=== PATIENT | male | born 1935 | race Caucasian/White ===

== ENCOUNTER 2017-09-30 03:59 | Emergency (ER) | payer MEDICARE ==
[~2017-09-30] VITALS: Ht 177.8 cm; Wt 95.2 kg
[~2017-09-30 03:59] MED LIST: ALFU10; ALLO100 PO; ASPI81CH PO; ASPI81EC PO; ATEN100 PO; AZELASTINE205.5 MCG/ NS; AZIT250 PO; Amitiza8 MCG PO; Aspir 8181 MG PO; B-121000 MC2 PO; CENTRUM COMPLE1 EACH PO; CODLIVC PO; DILT60ER PO; DIPH50 PO; DOCU100; DOCU100 PO; ESCI10; ESCI10 PO; FEXPSEER PO; FINA5 PO; Keflex500 MG PO; LATA.005SO BOTHEYES; LATA.005SO OD; LAVAP17G PO; LEVOCETIRIZINE D5 MG PO; LEVSOD100 PO; LINZESS145 MCG PO; LIRA0.6P; LISI20 PO; Lactulose10 GM/151 PO; METCAR750; METF500 PO; METF500C PO; METO50 PO; NEBI10 PO; Neurontin 300300 MG PO; OLME20 PO; OXYACE5T PO; OXYC5; PARO20 PO; POLY17UD PO; PRAV20 PO; Pravastatin Sod40 MG PO; Protonix40 MG PO; Razadyne8 MG PO; SIMBRINZA 1%-0.28 ML OP; SIMV20 PO; Senna-Extra17.2 MG; Senna-Extra17.2 MG PO; TAMS.4ER PO; TRAZ100 PO; VENL75ER PO
[2017-09-30] MEDS ORDERED: Tegretol200 MG PO (06:07)
== END 2017-09-30 06:27 | disposition home or self-care (01) ==
LOC: ER 03:59
DX: R51 Headache (principal); I10 Essential (primary) hypertension; E03.9 Hypothyroidism, unspecified; F32.9 Major depressive disorder, single episode, unspecified; E11.39 Type 2 diabetes mellitus with other diabetic ophthalmic complication; H40.9 Unspecified glaucoma; Z79.899 Other long term (current) drug therapy; Z79.82 Long term (current) use of aspirin; Z79.2 Long term (current) use of antibiotics; Z85.46 Personal history of malignant neoplasm of prostate
CPT/HCPCS: 70450; 99284

== ENCOUNTER 2017-10-04 11:26 | Emergency (ER) | payer MEDICARE ==
[~2017-10-04] VITALS: Ht 175.3 cm; Wt 99.8 kg
[~2017-10-04 11:26] MED LIST changes: +Tegretol200 MG PO
[2017-10-04 12:21] LABS: BASOPHILS ABSOLUTE AUTO 0.03 K/mm3 (0.00-0.23); BASOPHILS PERCENT AUTO 0 % (0-2); EOSINOPHILS ABSOLUTE AUTO 0.05 K/mm3 (0.00-0.68); EOSINOPHILS PERCENT AUTO 0 % (0-6); Hematocrit 40.2 % (37.0-53.0); Hemoglobin 13.6 g/dL (13.5-17.5); IMMATURE GRAN ABSOLUTE AUTO 0.06 K/mm3 (0.00-0.10); IMMATURE GRAN PERCENT AUTO 0 % (0-1); LYMPHOCYTES ABSOLUTE AUTO 15.48 K/mm3 (0.84-5.20); LYMPHOCYTES PERCENT AUTO 71 % (21-46); MONOCYTES ABSOLUTE AUTO 1.46 K/mm3 (0.16-1.47); MONOCYTES PERCENT AUTO 7 % (4-13); Mean Corpuscular HGB 31.6 pg (26.0-34.0); Mean Corpuscular HGB Conc 33.8 g/dL (31.5-36.5); Mean Corpuscular Volume 94 fL (80-100); Mean Platelet Volume 9.8 fL (9.1-12.4); NEUTROPHILS ABSOLUTE AUTO 4.86 K/mm3 (1.96-9.15); NEUTROPHILS PERCENT AUTO 22 % (41-73); Platelet Count 201 K/mm3 (150-400); RDW Coefficient Variation 13.1 % (11.7-14.2); RDW Standard Deviation 44.6 fL (35.1-46.3); White Blood Cell Count 21.94 K/mm3 (4.00-11.30)
[2017-10-04 12:37] LABS: Alanine Aminotransfer (ALT/SGP 27 U/L (12-78); Albumin, Blood 3.7 g/dL (3.4-5.0); Alk Phos 62 U/L (50-136); Anion Gap 8 mmol/L (6-16); Aspartate Aminotrans (AST/SGOT 21 U/L (12-37); Bilirubin, Total 0.3 mg/dL (0.1-1.0); Blood Urea Nitrogen 16 mg/dL (8-24); Bun/Creatinine Ratio 20.1 (12.0-20.0); CO2, Blood 23 mmol/L (21-32); Calcium, Blood 8.7 mg/dL (8.5-10.1); Chloride, Blood 96 mmol/L (98-108); Globulin, Blood 3.7 g/dL (2.2-4.0); Glomerular Filtration Rate >60 (60-); Glucose, Blood 120 mg/dL (70-99); Potassium, Blood 4.2 mmol/L (3.5-5.5); Sodium, Blood 127 mmol/L (136-145); Total Protein, Blood 7.4 g/dL (6.4-8.2)
[2017-10-04] MEDS ORDERED: TAMS.4ER PO (14:37)
== END 2017-10-04 17:20 | disposition home or self-care (01) ==
LOC: ER 11:26
PROVIDERS: Physician Assistant
DX: E87.1 Hypo-osmolality and hyponatremia (principal); I10 Essential (primary) hypertension; E03.9 Hypothyroidism, unspecified; F32.9 Major depressive disorder, single episode, unspecified; E11.9 Type 2 diabetes mellitus without complications; Z79.899 Other long term (current) drug therapy; Z79.82 Long term (current) use of aspirin
CPT/HCPCS: 36415; 71046; 80053; 81000; 84484; 85025; 93005; 93010; 99283

== ENCOUNTER → 2017-10-06 | Outpatient (CLI) | payer MEDICARE ==
[2017-10-06 10:47] LABS: Hematocrit 40.9 % (37.0-53.0); Hemoglobin 14.1 g/dL (13.5-17.5); Mean Corpuscular HGB 31.9 pg (26.0-34.0); Mean Corpuscular HGB Conc 34.5 g/dL (31.5-36.5); Mean Corpuscular Volume 93 fL (80-100); Mean Platelet Volume 9.8 fL (9.1-12.4); Platelet Count 219 K/mm3 (150-400); RDW Coefficient Variation 12.8 % (11.7-14.2); RDW Standard Deviation 43.4 fL (35.1-46.3); Red Blood Cell Count 4.42 M/mm3 (4.30-5.90)
[2017-10-06 11:04] LABS: Anion Gap 10 mmol/L (6-16); Blood Urea Nitrogen 16 mg/dL (8-24); Bun/Creatinine Ratio 15.7 (12.0-20.0); CO2, Blood 26 mmol/L (21-32); Calcium, Blood 8.9 mg/dL (8.5-10.1); Chloride, Blood 94 mmol/L (98-108); Creatinine, Blood 1.02 mg/dL (0.60-1.20); Glomerular Filtration Rate >60 (60-); Glucose, Blood 120 mg/dL (70-99); Potassium, Blood 4.3 mmol/L (3.5-5.5); Sodium, Blood 130 mmol/L (136-145); Thyroid Stimulating Hormone 2.413 uIU/mL (0.360-4.800)
[2017-10-06 13:27] LABS: BASOPHILS PERCENT MAN 0 % (0-2); EOSINOPHILS PERCENT MAN 0 % (0-6); LYMPHOCYTES ABSOLUTE MAN 19.48 K/mm3 (0.84-5.20); LYMPHOCYTES PERCENT MAN 87 % (21-46); MONOCYTES ABSOLUTE MAN 0.22 K/mm3 (0.16-1.47); MONOCYTES PERCENT MAN 1 % (4-13); NEUTROPHILS ABSOLUTE MAN 2.68 K/mm3 (1.96-9.15); SEG NEUTROPHILS PERCENT MAN 12 % (41-73); TOTAL CELLS COUNTED 100
== END ==
LOC: LAB SHORT 10:38
PROVIDERS: Family Medicine
DX: E87.1 Hypo-osmolality and hyponatremia (principal); R53.83 Other fatigue
CPT/HCPCS: 80048; 84443; 85025

== ENCOUNTER → 2017-11-06 | Outpatient (CLI) | payer MEDICARE ==
[2017-11-06 11:15] LABS: Hematocrit 40.9 % (37.0-53.0); Hemoglobin 13.8 g/dL (13.5-17.5); Mean Corpuscular HGB Conc 33.7 g/dL (31.5-36.5); Mean Corpuscular Volume 95 fL (80-100); Mean Platelet Volume 9.6 fL (9.1-12.4); Platelet Count 229 K/mm3 (150-400); RDW Coefficient Variation 13.2 % (11.7-14.2); RDW Standard Deviation 46.4 fL (35.1-46.3); Red Blood Cell Count 4.31 M/mm3 (4.30-5.90); White Blood Cell Count 19.61 K/mm3 (4.00-11.30)
[2017-11-06 11:38] LABS: BASOPHILS PERCENT MAN 0 % (0-2); EOSINOPHILS ABSOLUTE MAN 0.19 K/mm3 (0.00-0.68); EOSINOPHILS PERCENT MAN 1 % (0-6); LYMPHOCYTES % ATYPICAL MANUAL 18 % (0-0); LYMPHOCYTES ABSOLUTE MAN 13.72 K/mm3 (0.84-5.20); LYMPHOCYTES PERCENT MAN 52 % (21-46); MONOCYTES ABSOLUTE MAN 1.17 K/mm3 (0.16-1.47); MONOCYTES PERCENT MAN 6 % (4-13); NEUTROPHILS ABSOLUTE MAN 4.31 K/mm3 (1.96-9.15); PLASMA CELL ABSOLUTE MAN 0.19 K/mm3 (0.00-0.00); PLASMA CELLS PERCENT MAN 1 % (0-0); SEG NEUTROPHILS PERCENT MAN 22 % (41-73); TOTAL CELLS COUNTED 100
== END ==
LOC: LAB EV 11:12
PROVIDERS: Family Medicine
DX: K62.5 Hemorrhage of anus and rectum (principal)
CPT/HCPCS: 85025

== ENCOUNTER 2019-06-17 17:05 | Emergency (ER) | payer MEDICARE ==
[~2019-06-17] VITALS: Ht 177.8 cm; Wt 102.1 kg
== END 2019-06-17 18:40 | disposition home or self-care (01) ==
LOC: ER 17:05
DX: R04.0 Epistaxis (principal); I10 Essential (primary) hypertension; E11.9 Type 2 diabetes mellitus without complications; E03.9 Hypothyroidism, unspecified; H40.9 Unspecified glaucoma; Z85.6 Personal history of leukemia; Z79.899 Other long term (current) drug therapy; Z79.82 Long term (current) use of aspirin
CPT/HCPCS: 99283

== ENCOUNTER 2019-09-26 10:48 | Day surgery (SDC) | payer MEDICARE ==
[~2019-09-26] VITALS: Ht 172.7 cm; Wt 104.5 kg
[~2019-09-26 10:48] MED LIST changes: +ARIP10 PO; +B-12500 MCG PO; +Cyproheptadine H4 MG PO; +ELIQUIS5 MG PO; +LACT10SY PO; +MEMA10 PO; +METOPROLOL SUCC25 MG PO; -Pravastatin Sod40 MG PO; +Pravastatin Sod80 MG PO
--- NOTE | 2019-09-26 17:30 | NUR ---
PT BROUGHT TO PCU 5 VIA BED FROM [facility] POST PACER, HE IS A/OX3, AWAKE, PLEASANT AND COOPERATIVE WITH CARE, FOLLOWS COMMANDS WELL, STATES HIS LEFT SHOULDER HAS SOME DISCOMFORT, PLACED HIS ARM IN A SLING AND ICE PACK ON INCISION SITE FOR COMFORT, SITE HAS DRESSING IN PLACE IS C/D/I, NO BRUISING NOTED, IV SITE TO LFA, SITE IS CLEAR AND PATENT, BTX4, ABD FLAT SOFT NONTENDER, VOIDS WITHOUT DIFF, SKIN C/W/D EXCEPT NOTED ABOVE, ARAVIND, AMBULATED TO THE BR. ENMA, CALL LIGHT IN REACH.
--- NOTE | 2019-09-26 19:12 | NUR ---
PT HAVING SOME PAIN AT THE PACER SITE, RATES AT 5/10 GAVE A BRADCO. CALL LIGHT IN REACH, IN ROOM.
--- NOTE | 2019-09-26 19:59 | NUR ---
RECEIVED REPORT FROM DAY SHIFT, A+O, IN ROOM, NO S/SX OF INFECTION AT WOUND, WEARING BRACE AND ICE PACK ON SHOULDER, USING URINAL, LS GOOD, HR CONSISTANT, VSS, FEET COLD BUT PROFUSING WELL, PULSE STRONG IN ALL LIMBS, BM TODAY, BT+4, SOFT NONTENDER, WILL CONTINUE TO MONITOR AND TREAT, PAIN AROUND 3, COUNCELED R/PROCEDURE AND RECOVERY
--- NOTE | 2019-09-27 06:38 | NUR ---
a+o, declined medication for shoulder pain, did accept an ice bag, no difficulties noted with heart pacer, bp remained below 160 post one time dose of heart med, will continue to monitor and treat until share bsr with day shift and pt, bed in low position.
--- NOTE | 2019-09-27 09:00 | NUR ---
DISCHARGE INSTRUCTIONS GONE OVER WITH PT AND PT'S . ALL QUESTIONS ANSWERED. MEDICATIONS GONE OVER IN DETAIL, NO QUESTIONS FROM PT OR FAMILY. BELONGINGS GATHERED AND GIVEN TO PT'S . PT PROVIDED DETAILED INSTRUCTIONS FOR POST PACER CARE AND FOLLOW UP. PT STATED UNDERSTANDING OF INSTRUCTIONS. PT LEFT PCU VIA W/C ESCORTED BY OUTBOARD MOTOR INSPECTOR.
== END 2019-09-27 08:53 | disposition home or self-care (01) ==
LOC: MHTC 10:48 → PCU 16:59 → MHTC 23:19 → PCU 23:19 → MHTC 09-27 08:53
DX: I49.5 Sick sinus syndrome (principal); I48.0 Paroxysmal atrial fibrillation; I10 Essential (primary) hypertension; E11.9 Type 2 diabetes mellitus without complications; E03.9 Hypothyroidism, unspecified; E66.9 Obesity, unspecified; Z79.01 Long term (current) use of anticoagulants; Z79.899 Other long term (current) drug therapy; Z68.35 Body mass index [BMI] 35.0-35.9, adult
CPT/HCPCS: 33208; 71045; 99152; 99153; A9270-GY; C1785; C1898; J0690; J1644; J2250; J3010; J7030; J7040

== ENCOUNTER 2019-09-29 04:09 | Emergency (ER) | payer MEDICARE ==
[~2019-09-29] VITALS: Ht 175.3 cm; Wt 104.3 kg
== END 2019-09-29 06:35 | disposition home or self-care (01) ==
LOC: ER 04:09
DX: S01.112A Laceration without foreign body of left eyelid and periocular area, initial encounter (principal); I10 Essential (primary) hypertension; E11.9 Type 2 diabetes mellitus without complications; F32.9 Major depressive disorder, single episode, unspecified; E03.9 Hypothyroidism, unspecified; I47.1 Supraventricular tachycardia; Z79.899 Other long term (current) drug therapy; W18.30XA Fall on same level, unspecified, initial encounter
CPT/HCPCS: 12011; 70450; 99284-25

== ENCOUNTER → 2019-11-15 11:15 | Emergency (ER) | payer MEDICARE ==
[~2019-11-15] VITALS: Ht 175.3 cm; Wt 101.2 kg
[~2019-11-15 11:15] MED LIST changes: +ABILIFY MYCITE2 MG PO
[2019-11-15 12:18] LABS: Source, Urine Clean Catch
[2019-11-15 12:20] LABS: Hematocrit 43.8 % (37.0-53.0); Mean Corpuscular HGB 30.6 pg (26.0-34.0); Mean Corpuscular Volume 96 fL (80-100); Mean Platelet Volume 10.4 fL (9.1-12.4); NRBC ABSOLUTE 0.02 K/mm3 (0.00-0.02); NRBC Auto 0.1 /100 WBC (0.0-0.2); Platelet Count 196 K/mm3 (150-400); RDW Coefficient Variation 14.5 % (11.7-14.2); RDW Standard Deviation 50.8 fL (35.1-46.3); Red Blood Cell Count 4.57 M/mm3 (4.30-5.90)
[2019-11-15 12:23] LABS: Bilirubin, Urine Neg (Neg); Blood, Urine 1+ (Neg); Glucose Qualitative, Urine Neg (Neg); Ketones, Urine Neg (Neg); Leukocyte Esterase, Urine Neg (Neg); Nitrite, Urine Neg (Neg); Protein, Urine Neg (Neg); Specific Gravity, Urine 1.015 (1.003-1.022); Urobilinogen, Urine NORM (Normal)
[2019-11-15 12:37] LABS: Appearance, Urine Clear (Clear); Color, Urine Yellow (P-Yellow)
[2019-11-15 12:38] LABS: Red Blood Cells, Urine 0-2 /hpf (0-2); White Blood Cells, Urine 0-2 /hpf (0-5)
[2019-11-15 12:39] LABS: Bacteria Not Seen /hpf; Mucus Light (0-Heavy); Squamous Epithelial Cells Not Seen /hpf (Few)
[2019-11-15 12:41] LABS: Alanine Aminotransfer (ALT/SGP 22 U/L (12-78); Albumin, Blood 3.6 g/dL (3.4-5.0); Albumin/Globulin Ratio 0.9 (0.8-1.8); Alk Phos 46 U/L (50-136); Anion Gap 5 mmol/L (6-16); Aspartate Aminotrans (AST/SGOT 12 U/L (12-37); Bilirubin, Total 0.6 mg/dL (0.1-1.0); Blood Urea Nitrogen 20 mg/dL (8-24); CO2, Blood 28 mmol/L (21-32); Calcium, Blood 8.9 mg/dL (8.5-10.1); Chloride, Blood 102 mmol/L (98-108); Ethanol (Alcohol), Blood, Med <3 mg/dL; Globulin, Blood 3.8 g/dL (2.2-4.0); Glomerular Filtration Rate >60 (60-); Glucose, Blood 121 mg/dL (70-99); Potassium, Blood 4.9 mmol/L (3.5-5.5); Salicylate <1.7 mg/dL (2.8-20.0); Sodium, Blood 135 mmol/L (136-145); Total Protein, Blood 7.4 g/dL (6.4-8.2)
[2019-11-15 12:42] LABS: Acetaminophen, Random <2.0 ug/mL (10.0-30.0)
[2019-11-15 12:47] LABS: BASOPHILS PERCENT MAN 0 % (0-2); EOSINOPHILS ABSOLUTE MAN 0.33 K/mm3 (0.00-0.68); EOSINOPHILS PERCENT MAN 1 % (0-6); LYMPHOCYTES % ATYPICAL MANUAL 1 % (0-0); LYMPHOCYTES PERCENT MAN 72 % (21-46); MONOCYTES ABSOLUTE MAN 2.66 K/mm3 (0.16-1.47); MONOCYTES PERCENT MAN 8 % (4-13); NEUTROPHILS ABSOLUTE MAN 5.99 K/mm3 (1.96-9.15); SEG NEUTROPHILS PERCENT MAN 18 % (41-73); TOTAL CELLS COUNTED 100
[2019-11-15 12:54] LABS: U Amphetamine Screen Not Detected; U Barbituate Screen Not Detected; U Benzodiazapine Screen Not Detected; U Buprenorphine Screen Not Detected; U Cannabinoids Screen Not Detected; U Cocaine Screen Not Detected; U Methadone Screen Not Detected; U Methamphetamine Screen Not Detected; U Opiates Screen Not Detected; U Oxycodone Screen Not Detected; U Propoxyphene Screen Not Detected
== END | disposition home or self-care (01) ==
LOC: ER 11:15
PROVIDERS: Emergency Medicine
DX: F32.9 Major depressive disorder, single episode, unspecified (principal); C91.10 Chronic lymphocytic leukemia of B-cell type not having achieved remission; I10 Essential (primary) hypertension; E11.9 Type 2 diabetes mellitus without complications; E03.9 Hypothyroidism, unspecified; Z79.899 Other long term (current) drug therapy; Z79.01 Long term (current) use of anticoagulants
CPT/HCPCS: 36415; 51798; 80053; 81001; 84443; 85025; 99284-25; G0480

== ENCOUNTER 2020-06-11 20:05 | Emergency (ER) | payer MEDICARE ==
[~2020-06-11] VITALS: Ht 177.8 cm; Wt 103.0 kg
[2020-06-11] MEDS ORDERED: SULTRIDS PO (20:22)
[2020-06-11 20:45] LABS: BASOPHILS ABSOLUTE AUTO 0.07 K/mm3 (0.00-0.23); BASOPHILS PERCENT AUTO 1 % (0-2); EOSINOPHILS ABSOLUTE AUTO 0.09 K/mm3 (0.00-0.68); EOSINOPHILS PERCENT AUTO 1 % (0-6); Hematocrit 36.1 % (37.0-53.0); Hemoglobin 11.7 g/dL (13.5-17.5); IMMATURE GRAN ABSOLUTE AUTO 0.09 K/mm3 (0.00-0.10); IMMATURE GRAN PERCENT AUTO 1 % (0-1); LYMPHOCYTES ABSOLUTE AUTO 2.79 K/mm3 (0.84-5.20); LYMPHOCYTES PERCENT AUTO 36 % (21-46); MONOCYTES ABSOLUTE AUTO 0.88 K/mm3 (0.16-1.47); MONOCYTES PERCENT AUTO 11 % (4-13); Mean Corpuscular HGB 28.9 pg (26.0-34.0); Mean Corpuscular HGB Conc 32.4 g/dL (31.5-36.5); Mean Corpuscular Volume 89 fL (80-100); Mean Platelet Volume 11.2 fL (9.1-12.4); NEUTROPHILS PERCENT AUTO 50 % (41-73); Platelet Count 194 K/mm3 (150-400); RDW Coefficient Variation 14.9 % (11.7-14.2); RDW Standard Deviation 48.4 fL (35.1-46.3); Red Blood Cell Count 4.05 M/mm3 (4.30-5.90); White Blood Cell Count 7.82 K/mm3 (4.00-11.30)
[2020-06-11 21:05] LABS: Alanine Aminotransfer (ALT/SGP 18 U/L (12-78); Albumin, Blood 3.2 g/dL (3.4-5.0); Albumin/Globulin Ratio 0.9 (0.8-1.8); Alk Phos 43 U/L (50-136); Anion Gap 11 mmol/L (6-16); Aspartate Aminotrans (AST/SGOT 19 U/L (12-37); Bilirubin, Total 0.3 mg/dL (0.1-1.0); Blood Urea Nitrogen 24 mg/dL (8-24); Bun/Creatinine Ratio 20.5 (12.0-20.0); CO2, Blood 22 mmol/L (21-32); Calcium, Blood 8.7 mg/dL (8.5-10.1); Chloride, Blood 103 mmol/L (98-108); Creatinine, Blood 1.17 mg/dL (0.60-1.20); Globulin, Blood 3.7 g/dL (2.2-4.0); Glomerular Filtration Rate >60 (60-); Glucose, Blood 145 mg/dL (70-99); Potassium, Blood 3.9 mmol/L (3.5-5.5); Sodium, Blood 136 mmol/L (136-145); Total Protein, Blood 6.9 g/dL (6.4-8.2)
[2020-06-11 22:58] LABS: Source, Urine Clean Catch
[2020-06-11 23:05] LABS: Bilirubin, Urine Neg (Neg); Blood, Urine 5+ (Neg); Glucose Qualitative, Urine Neg (Neg); Ketones, Urine Neg (Neg); Leukocyte Esterase, Urine Neg (Neg); Nitrite, Urine Neg (Neg); Protein, Urine 4+ (Neg); Urobilinogen, Urine NORM (Normal); pH, Urine 6.5 (5.0-8.0)
[2020-06-11 23:12] LABS: Appearance, Urine Turbid (Clear); Bacteria Not Seen /hpf; Color, Urine Red (P-Yellow); Red Blood Cells, Urine TNTC /hpf (0-2); Squamous Epithelial Cells Not Seen /hpf (Few); White Blood Cells, Urine 0-2 /hpf (0-5)
== END 2020-06-12 00:21 | disposition home or self-care (01) ==
LOC: ER 20:05
PROVIDERS: Emergency Medicine
DX: R31.9 Hematuria, unspecified (principal); R30.0 Dysuria; R35.0 Frequency of micturition; Z87.440 Personal history of urinary (tract) infections; I10 Essential (primary) hypertension; E11.9 Type 2 diabetes mellitus without complications; F32.9 Major depressive disorder, single episode, unspecified; E03.9 Hypothyroidism, unspecified; F03.90 Unspecified dementia, unspecified severity, without behavioral disturbance, psychotic disturbance, mood disturbance, and anxiety; Z79.01 Long term (current) use of anticoagulants; Z79.899 Other long term (current) drug therapy
CPT/HCPCS: 36415; 80053; 81001; 85025; 99283

== ENCOUNTER 2020-11-05 23:01 | Emergency (ER) | payer MEDICARE ==
[~2020-11-05] VITALS: Ht 175.3 cm; Wt 102.1 kg
[~2020-11-05 23:01] MED LIST changes: +SULTRIDS PO
== END 2020-11-06 00:19 | disposition home or self-care (01) ==
LOC: ER 23:01
DX: S50.01XA Contusion of right elbow, initial encounter (principal); S00.81XA Abrasion of other part of head, initial encounter; I10 Essential (primary) hypertension; E03.9 Hypothyroidism, unspecified; Z79.01 Long term (current) use of anticoagulants; Z79.899 Other long term (current) drug therapy; W01.198A Fall on same level from slipping, tripping and stumbling with subsequent striking against other object, initial encounter; Y92.002 Bathroom of unspecified non-institutional (private) residence as the place of occurrence of the external cause
CPT/HCPCS: 36415; 73070; 99283-25

== ENCOUNTER 2021-05-13 15:41 | Emergency (ER) | payer MEDICARE ==
[~2021-05-13] VITALS: Ht 175.3 cm; Wt 102.1 kg
[2021-05-13 16:46] LABS: Alanine Aminotransfer (ALT/SGP 28 U/L (12-78); Albumin, Blood 3.3 g/dL (3.4-5.0); Albumin/Globulin Ratio 0.8 (0.8-1.8); Alk Phos 39 U/L (50-136); Anion Gap 6 mmol/L (6-16); Aspartate Aminotrans (AST/SGOT 22 U/L (12-37); Bilirubin, Total 0.8 mg/dL (0.1-1.0); Blood Urea Nitrogen 17 mg/dL (8-24); CO2, Blood 24 mmol/L (21-32); Calcium, Blood 8.1 mg/dL (8.5-10.1); Chloride, Blood 101 mmol/L (98-108); Creatinine, Blood 1.06 mg/dL (0.60-1.20); Glomerular Filtration Rate >60 (60-); Glucose, Blood 80 mg/dL (70-99); Potassium, Blood 4.5 mmol/L (3.5-5.5); Sodium, Blood 131 mmol/L (136-145); Total Protein, Blood 7.3 g/dL (6.4-8.2); Troponin I <0.015 ng/mL (0.000-0.040)
[2021-05-13 16:49] LABS: BASOPHILS ABSOLUTE AUTO 0.04 K/mm3 (0.00-0.23); BASOPHILS PERCENT AUTO 1 % (0-2); EOSINOPHILS ABSOLUTE AUTO 0.01 K/mm3 (0.00-0.68); EOSINOPHILS PERCENT AUTO 0 % (0-6); Hematocrit 42.1 % (37.0-53.0); Hemoglobin 14.4 g/dL (13.5-17.5); IMMATURE GRAN ABSOLUTE AUTO 0.08 K/mm3 (0.00-0.10); IMMATURE GRAN PERCENT AUTO 1 % (0-1); LYMPHOCYTES ABSOLUTE AUTO 0.89 K/mm3 (0.84-5.20); LYMPHOCYTES PERCENT AUTO 13 % (21-46); MONOCYTES ABSOLUTE AUTO 0.86 K/mm3 (0.16-1.47); MONOCYTES PERCENT AUTO 12 % (4-13); Mean Corpuscular HGB 32.1 pg (26.0-34.0); Mean Corpuscular HGB Conc 34.2 g/dL (31.5-36.5); Mean Corpuscular Volume 94 fL (80-100); NEUTROPHILS ABSOLUTE AUTO 5.07 K/mm3 (1.96-9.15); NEUTROPHILS PERCENT AUTO 73 % (41-73); RDW Coefficient Variation 13.3 % (11.7-14.2); RDW Standard Deviation 46.3 fL (35.1-46.3); Red Blood Cell Count 4.48 M/mm3 (4.30-5.90); White Blood Cell Count 6.95 K/mm3 (4.00-11.30)
[2021-05-13 16:53] LABS: Mean Platelet Volume 11.9 fL (9.1-12.4); Platelet Count 130 K/mm3 (150-400)
[2021-05-13] MEDS ORDERED: AMOCLA875 PO (17:47)
== END 2021-05-13 18:28 | disposition home or self-care (01) ==
LOC: ER 15:41
PROVIDERS: Physician Assistant
DX: J32.9 Chronic sinusitis, unspecified (principal); R50.9 Fever, unspecified; Z85.6 Personal history of leukemia; I10 Essential (primary) hypertension; Z79.899 Other long term (current) drug therapy
CPT/HCPCS: 36415; 71045; 80053; 84484; 85025; 93005; 93010; 99285-25; A9270

== ENCOUNTER 2021-05-19 11:52 | Emergency (ER) | payer MEDICARE ==
[~2021-05-19] VITALS: Ht 175.3 cm; Wt 99.8 kg
[~2021-05-19 11:52] MED LIST changes: +AMOCLA875 PO
[2021-05-19] MEDS ORDERED: GABA300 PO (12:32)
[2021-05-19] MEDS ORDERED: MONT10T PO (12:33)
[2021-05-19 13:05] LABS: BASOPHILS ABSOLUTE AUTO 0.04 K/mm3 (0.00-0.23); BASOPHILS PERCENT AUTO 1 % (0-2); EOSINOPHILS ABSOLUTE AUTO 0.01 K/mm3 (0.00-0.68); EOSINOPHILS PERCENT AUTO 0 % (0-6); Hematocrit 40.4 % (37.0-53.0); Hemoglobin 13.6 g/dL (13.5-17.5); IMMATURE GRAN ABSOLUTE AUTO 0.24 K/mm3 (0.00-0.10); IMMATURE GRAN PERCENT AUTO 4 % (0-1); LYMPHOCYTES ABSOLUTE AUTO 1.32 K/mm3 (0.84-5.20); LYMPHOCYTES PERCENT AUTO 21 % (21-46); MONOCYTES ABSOLUTE AUTO 0.68 K/mm3 (0.16-1.47); MONOCYTES PERCENT AUTO 11 % (4-13); Mean Corpuscular HGB 31.9 pg (26.0-34.0); Mean Corpuscular HGB Conc 33.7 g/dL (31.5-36.5); Mean Corpuscular Volume 95 fL (80-100); Mean Platelet Volume 10.7 fL (9.1-12.4); NEUTROPHILS ABSOLUTE AUTO 3.98 K/mm3 (1.96-9.15); NEUTROPHILS PERCENT AUTO 64 % (41-73); Platelet Count 134 K/mm3 (150-400); RDW Coefficient Variation 13.8 % (11.7-14.2); RDW Standard Deviation 48.7 fL (35.1-46.3); Red Blood Cell Count 4.27 M/mm3 (4.30-5.90); White Blood Cell Count 6.27 K/mm3 (4.00-11.30)
[2021-05-19 13:22] LABS: Alanine Aminotransfer (ALT/SGP 34 U/L (12-78); Albumin, Blood 2.9 g/dL (3.4-5.0); Albumin/Globulin Ratio 0.7 (0.8-1.8); Alk Phos 37 U/L (50-136); Anion Gap 6 mmol/L (6-16); Aspartate Aminotrans (AST/SGOT 24 U/L (12-37); Bilirubin, Total 0.5 mg/dL (0.1-1.0); Blood Urea Nitrogen 23 mg/dL (8-24); Bun/Creatinine Ratio 20.5 (12.0-20.0); CO2, Blood 23 mmol/L (21-32); Calcium, Blood 8.1 mg/dL (8.5-10.1); Chloride, Blood 104 mmol/L (98-108); Creatinine, Blood 1.12 mg/dL (0.60-1.20); Globulin, Blood 4.1 g/dL (2.2-4.0); Glomerular Filtration Rate >60 (60-); Glucose, Blood 72 mg/dL (70-99); Magnesium, Blood 1.8 mg/dL (1.6-2.4); Potassium, Blood 4.4 mmol/L (3.5-5.5); Sodium, Blood 133 mmol/L (136-145)
[2021-05-19 14:20] LABS: Source, Urine Catheter
[2021-05-19 14:21] LABS: SARS-Cov-2 (COVID-19) PCR, MMC POSITIVE (NEGATIVE)
[2021-05-19 14:29] LABS: Appearance, Urine Clear (Clear); Bilirubin, Urine Neg (Neg); Blood, Urine 2+ (Neg); Color, Urine Amber (P-Yellow); Glucose Qualitative, Urine Neg (Neg); Ketones, Urine Neg (Neg); Leukocyte Esterase, Urine Neg (Neg); Nitrite, Urine Neg (Neg); Protein, Urine 2+ (Neg); Urobilinogen, Urine NORM (Normal)
[2021-05-19 14:45] LABS: Bacteria Rare /hpf; Red Blood Cells, Urine 0-2 /hpf (0-2); Squamous Epithelial Cells Rare /hpf (Few); White Blood Cells, Urine 0-2 /hpf (0-5)
[2021-05-19 14:46] LABS: Calcium Oxalate Crystals Few /hpf
== END 2021-05-19 15:48 | disposition home or self-care (01) ==
LOC: ER 11:52
PROVIDERS: Student in an Organized Health Care Education/Training Program
DX: U07.1 COVID-19 (principal); R53.83 Other fatigue; E86.0 Dehydration; R41.0 Disorientation, unspecified; I10 Essential (primary) hypertension; E03.9 Hypothyroidism, unspecified; Z85.6 Personal history of leukemia; Z79.01 Long term (current) use of anticoagulants; Z79.890 Hormone replacement therapy; Z79.899 Other long term (current) drug therapy
CPT/HCPCS: 36415; 70450; 71045; 80053; 81001; 83605; 83735; 84145; 85025; 93005; 93010; 96374; 99285-25; J1885; J7030; U0004

== ENCOUNTER 2021-05-22 05:49 | Emergency (ER) | payer MEDICARE ==
[~2021-05-22] VITALS: Ht 175.3 cm; Wt 102.1 kg
[~2021-05-22 05:49] MED LIST changes: +GABA300 PO; +MONT10T PO
[2021-05-22 07:23] LABS: Alanine Aminotransfer (ALT/SGP 36 U/L (12-78); Albumin, Blood 2.7 g/dL (3.4-5.0); Albumin/Globulin Ratio 0.7 (0.8-1.8); Alk Phos 34 U/L (50-136); Anion Gap 7 mmol/L (6-16); Aspartate Aminotrans (AST/SGOT 35 U/L (12-37); Bilirubin, Total 0.7 mg/dL (0.1-1.0); Blood Urea Nitrogen 21 mg/dL (8-24); Bun/Creatinine Ratio 19.1 (12.0-20.0); CO2, Blood 23 mmol/L (21-32); Calcium, Blood 7.8 mg/dL (8.5-10.1); Chloride, Blood 103 mmol/L (98-108); Glomerular Filtration Rate >60 (60-); Glucose, Blood 65 mg/dL (70-99); Potassium, Blood 3.8 mmol/L (3.5-5.5); Sodium, Blood 133 mmol/L (136-145); Total Protein, Blood 6.7 g/dL (6.4-8.2)
[2021-05-22 07:37] LABS: BASOPHILS ABSOLUTE AUTO 0.03 K/mm3 (0.00-0.23); BASOPHILS PERCENT AUTO 0 % (0-2); EOSINOPHILS ABSOLUTE AUTO 0.06 K/mm3 (0.00-0.68); EOSINOPHILS PERCENT AUTO 1 % (0-6); Hematocrit 36.8 % (37.0-53.0); Hemoglobin 12.3 g/dL (13.5-17.5); IMMATURE GRAN ABSOLUTE AUTO 0.33 K/mm3 (0.00-0.10); IMMATURE GRAN PERCENT AUTO 4 % (0-1); LYMPHOCYTES ABSOLUTE AUTO 1.55 K/mm3 (0.84-5.20); LYMPHOCYTES PERCENT AUTO 21 % (21-46); MONOCYTES ABSOLUTE AUTO 0.54 K/mm3 (0.16-1.47); MONOCYTES PERCENT AUTO 7 % (4-13); Mean Corpuscular HGB 31.4 pg (26.0-34.0); Mean Corpuscular HGB Conc 33.4 g/dL (31.5-36.5); Mean Corpuscular Volume 94 fL (80-100); NEUTROPHILS ABSOLUTE AUTO 4.94 K/mm3 (1.96-9.15); NEUTROPHILS PERCENT AUTO 66 % (41-73); Platelet Count 132 K/mm3 (150-400); RDW Coefficient Variation 13.7 % (11.7-14.2); RDW Standard Deviation 47.7 fL (35.1-46.3); Red Blood Cell Count 3.92 M/mm3 (4.30-5.90); White Blood Cell Count 7.45 K/mm3 (4.00-11.30)
[2021-05-22] MEDS ORDERED: AZIT500 PO (10:59)
[2021-05-23] MEDS ORDERED: VENL150ER PO (15:45)
[2021-05-23] MEDS ORDERED: 1/2 NS 250ml250 ML (15:46)
== END 2021-05-22 11:33 | disposition home or self-care (01) ==
LOC: ER 05:49
PROVIDERS: Emergency Medicine
DX: U07.1 COVID-19 (principal); I10 Essential (primary) hypertension; F32.9 Major depressive disorder, single episode, unspecified; E03.9 Hypothyroidism, unspecified; Z95.0 Presence of cardiac pacemaker
CPT/HCPCS: 71045; 71260; 80053; 84484; 85025; 85379; 93005; 93010; 99285-25; A9270; Q9967

== ENCOUNTER 2021-05-23 08:46 | Observation (INO) | payer MEDICARE ==
[~2021-05-23] VITALS: Ht 180.3 cm; Wt 95.7 kg
[~2021-05-23 08:46] MED LIST changes: +AZIT500 PO
[2021-05-23 09:10] LABS: BASOPHILS ABSOLUTE AUTO 0.04 K/mm3 (0.00-0.23); BASOPHILS PERCENT AUTO 1 % (0-2); EOSINOPHILS ABSOLUTE AUTO 0.03 K/mm3 (0.00-0.68); EOSINOPHILS PERCENT AUTO 0 % (0-6); Hemoglobin 13.9 g/dL (13.5-17.5); IMMATURE GRAN PERCENT AUTO 2 % (0-1); LYMPHOCYTES ABSOLUTE AUTO 1.54 K/mm3 (0.84-5.20); LYMPHOCYTES PERCENT AUTO 18 % (21-46); MONOCYTES ABSOLUTE AUTO 0.63 K/mm3 (0.16-1.47); MONOCYTES PERCENT AUTO 7 % (4-13); Mean Corpuscular HGB 31.4 pg (26.0-34.0); Mean Corpuscular HGB Conc 33.9 g/dL (31.5-36.5); Mean Corpuscular Volume 93 fL (80-100); Mean Platelet Volume 12.4 fL (9.1-12.4); NEUTROPHILS ABSOLUTE AUTO 6.23 K/mm3 (1.96-9.15); NEUTROPHILS PERCENT AUTO 72 % (41-73); Platelet Count 127 K/mm3 (150-400); RDW Coefficient Variation 13.6 % (11.7-14.2); RDW Standard Deviation 46.5 fL (35.1-46.3); Red Blood Cell Count 4.42 M/mm3 (4.30-5.90); White Blood Cell Count 8.67 K/mm3 (4.00-11.30)
[2021-05-23 09:28] LABS: Anion Gap 8 mmol/L (6-16); Blood Urea Nitrogen 20 mg/dL (8-24); Bun/Creatinine Ratio 18.2 (12.0-20.0); CO2, Blood 21 mmol/L (21-32); Calcium, Blood 8.5 mg/dL (8.5-10.1); Chloride, Blood 105 mmol/L (98-108); Glomerular Filtration Rate >60 (60-); Glucose, Blood 91 mg/dL (70-99); Potassium, Blood 3.9 mmol/L (3.5-5.5); Sodium, Blood 134 mmol/L (136-145)
[2021-05-23 09:54] LABS: Magnesium, Blood 1.9 mg/dL (1.6-2.4); Troponin I 0.071 ng/mL (0.000-0.040)
[2021-05-23] MEDS ORDERED: VENL150ER PO (15:45)
[2021-05-23] MEDS ORDERED: 1/2 NS 250ml250 ML (15:46)
--- NOTE | 2021-05-23 18:59 | NUR ---
PT ADMITTED FROM ER. HE IS CONFUSED BUT PLEASANT. NO PAIN NOTED. PT IS ON ROOM AIR, NO SOB NOTED. CALL LIGHT WITHIN REACH.
[2021-05-24 04:59] LABS: BASOPHILS ABSOLUTE AUTO 0.04 K/mm3 (0.00-0.23); BASOPHILS PERCENT AUTO 1 % (0-2); EOSINOPHILS PERCENT AUTO 0 % (0-6); Hematocrit 40.5 % (37.0-53.0); Hemoglobin 13.3 g/dL (13.5-17.5); IMMATURE GRAN ABSOLUTE AUTO 0.26 K/mm3 (0.00-0.10); IMMATURE GRAN PERCENT AUTO 4 % (0-1); LYMPHOCYTES ABSOLUTE AUTO 1.63 K/mm3 (0.84-5.20); LYMPHOCYTES PERCENT AUTO 26 % (21-46); MONOCYTES ABSOLUTE AUTO 0.23 K/mm3 (0.16-1.47); MONOCYTES PERCENT AUTO 4 % (4-13); Mean Corpuscular HGB 31.1 pg (26.0-34.0); Mean Corpuscular HGB Conc 32.8 g/dL (31.5-36.5); Mean Corpuscular Volume 95 fL (80-100); NEUTROPHILS ABSOLUTE AUTO 4.02 K/mm3 (1.96-9.15); NEUTROPHILS PERCENT AUTO 65 % (41-73); RDW Coefficient Variation 13.9 % (11.7-14.2); RDW Standard Deviation 48.8 fL (35.1-46.3); Red Blood Cell Count 4.28 M/mm3 (4.30-5.90); White Blood Cell Count 6.18 K/mm3 (4.00-11.30)
[2021-05-24 05:18] LABS: Mean Platelet Volume 11.8 fL (9.1-12.4); Platelet Count 126 K/mm3 (150-400)
[2021-05-24 05:21] LABS: Alanine Aminotransfer (ALT/SGP 35 U/L (12-78); Albumin, Blood 2.2 g/dL (3.4-5.0); Albumin/Globulin Ratio 0.6 (0.8-1.8); Alk Phos 34 U/L (50-136); Anion Gap 9 mmol/L (6-16); Aspartate Aminotrans (AST/SGOT 33 U/L (12-37); Bilirubin, Total 0.4 mg/dL (0.1-1.0); Blood Urea Nitrogen 18 mg/dL (8-24); Bun/Creatinine Ratio 19.6 (12.0-20.0); CO2, Blood 20 mmol/L (21-32); Calcium, Blood 7.3 mg/dL (8.5-10.1); Chloride, Blood 108 mmol/L (98-108); Creatinine, Blood 0.92 mg/dL (0.60-1.20); Glomerular Filtration Rate >60 (60-); Glucose, Blood 141 mg/dL (70-99); Potassium, Blood 3.8 mmol/L (3.5-5.5); Sodium, Blood 137 mmol/L (136-145); Total Protein, Blood 6.2 g/dL (6.4-8.2); Troponin I 0.024 ng/mL (0.000-0.040)
--- NOTE | 2021-05-24 05:25 | NUR ---
SHIFT SUMMARY AOX2-SELF, TOWN, FOLLOWING DIRECTIONS. UNAWARE DATE , SITUATION OR WHERE IN [place]. DENIES PAIN, N/V. ADMITTED FOR COVID 19. SPO2 >90% ON RA. VSS. TELE AFIB & PACED @70 PER TELE SKURATOR TECH. VERY WEAK, TIRED. SLEPT T/O NIGHT. CALL LIGHT IN REACH. WCTM.
--- NOTE | 2021-05-25 04:42 | NUR ---
SHIFT SUMMARY NO ACUTE CHANGES THIS SHIFT. AOX1-SELF & FOLLOWING DIRECTIONS. UNAWARE PLACE, DATE OR SITUATION. PLEASENTLY CONFUSED & COOPERATIVE. VSS. TELE AIB @90. DENIES PAIN, N/V OR SOB. SPO2 >90% ON RA. CALL LIGHT & BED ALARM IN PLACE.
[2021-05-25 05:07] LABS: BASOPHILS ABSOLUTE AUTO 0.04 K/mm3 (0.00-0.23); BASOPHILS PERCENT AUTO 0 % (0-2); EOSINOPHILS PERCENT AUTO 0 % (0-6); Hemoglobin 13.5 g/dL (13.5-17.5); IMMATURE GRAN ABSOLUTE AUTO 0.33 K/mm3 (0.00-0.10); IMMATURE GRAN PERCENT AUTO 3 % (0-1); LYMPHOCYTES ABSOLUTE AUTO 1.74 K/mm3 (0.84-5.20); LYMPHOCYTES PERCENT AUTO 15 % (21-46); MONOCYTES ABSOLUTE AUTO 0.58 K/mm3 (0.16-1.47); MONOCYTES PERCENT AUTO 5 % (4-13); Mean Corpuscular HGB 31.5 pg (26.0-34.0); Mean Corpuscular HGB Conc 33.8 g/dL (31.5-36.5); Mean Corpuscular Volume 93 fL (80-100); Mean Platelet Volume 12.6 fL (9.1-12.4); NEUTROPHILS ABSOLUTE AUTO 9.17 K/mm3 (1.96-9.15); NEUTROPHILS PERCENT AUTO 77 % (41-73); Platelet Count 139 K/mm3 (150-400); RDW Standard Deviation 48.3 fL (35.1-46.3); Red Blood Cell Count 4.29 M/mm3 (4.30-5.90); White Blood Cell Count 11.86 K/mm3 (4.00-11.30)
[2021-05-25 05:34] LABS: Anion Gap 7 mmol/L (6-16); Blood Urea Nitrogen 23 mg/dL (8-24); Bun/Creatinine Ratio 25.7 (12.0-20.0); CO2, Blood 20 mmol/L (21-32); Calcium, Blood 7.9 mg/dL (8.5-10.1); Chloride, Blood 112 mmol/L (98-108); Creatinine, Blood 0.89 mg/dL (0.60-1.20); Glomerular Filtration Rate >60 (60-); Glucose, Blood 161 mg/dL (70-99); Potassium, Blood 4.2 mmol/L (3.5-5.5); Sodium, Blood 139 mmol/L (136-145)
[2021-05-25] MEDS ORDERED: ASCO500 PO (12:30)
[2021-05-25] MEDS ORDERED: DOXY100 PO (12:31)
[2021-05-25] MEDS ORDERED: ELIQUIS2.5 MG PO (12:32)
[2021-05-25] MEDS ORDERED: METPRE4DP PO (12:33)
--- NOTE | 2021-05-25 17:23 | NUR ---
Update 05/25/21: Per chart review with Dr. Arce, pt. is appropriate for discharge. Pt. scheduled for [facility] F/U 05/27/21. at 4:20 pm. Nurse notified of appointment date/time. Patient's providing transportation. Denied any further needs at this time.
== END 2021-05-25 13:43 | disposition home or self-care (01) ==
LOC: ER 08:46 → MEDS 08:47 → ER 12:58 → MEDS 12:58 → ER 05-24 12:58 → MEDS 05-24 16:39
PROVIDERS: Family Medicine; Student in an Organized Health Care Education/Training Program; ADMIT Internal Medicine
DX: U07.1 COVID-19 (principal); R62.7 Adult failure to thrive; G31.84 Mild cognitive impairment of uncertain or unknown etiology; R79.1 Abnormal coagulation profile; I48.19 Other persistent atrial fibrillation; E86.0 Dehydration; E44.1 Mild protein-calorie malnutrition; C91.10 Chronic lymphocytic leukemia of B-cell type not having achieved remission; I10 Essential (primary) hypertension; E78.5 Hyperlipidemia, unspecified; E03.9 Hypothyroidism, unspecified; J45.909 Unspecified asthma, uncomplicated; Z95.0 Presence of cardiac pacemaker; Z79.899 Other long term (current) drug therapy
CPT/HCPCS: 36415; 71045; 80048; 80053; 82728; 82947; 83615; 83735; 83880; 84145; 84484; 85025; 85379; 85651; 86140; 93005; 93010; 93306; 96361; 96372; 96374; 96375; 96376; 99285-25; A9270; G0378; J1650; J2920; J7030

== ENCOUNTER → 2021-06-16 | Outpatient (CLI) | payer MEDICARE ==
[~2021-06-16] MED LIST changes: +1/2 NS 250ml250 ML; +ASCO500 PO; +DOXY100 PO; +ELIQUIS2.5 MG PO; +METPRE4DP PO; +VENL150ER PO
[2021-06-16 14:53] LABS: BASOPHILS ABSOLUTE AUTO 0.06 K/mm3 (0.00-0.23); BASOPHILS PERCENT AUTO 1 % (0-2); EOSINOPHILS ABSOLUTE AUTO 0.25 K/mm3 (0.00-0.68); EOSINOPHILS PERCENT AUTO 3 % (0-6); Hematocrit 39.6 % (37.0-53.0); Hemoglobin 13.2 g/dL (13.5-17.5); IMMATURE GRAN ABSOLUTE AUTO 0.16 K/mm3 (0.00-0.10); IMMATURE GRAN PERCENT AUTO 2 % (0-1); LYMPHOCYTES ABSOLUTE AUTO 2.36 K/mm3 (0.84-5.20); LYMPHOCYTES PERCENT AUTO 28 % (21-46); MONOCYTES PERCENT AUTO 8 % (4-13); Mean Corpuscular HGB 32.2 pg (26.0-34.0); Mean Corpuscular HGB Conc 33.3 g/dL (31.5-36.5); Mean Corpuscular Volume 97 fL (80-100); Mean Platelet Volume 12.1 fL (9.1-12.4); NEUTROPHILS ABSOLUTE AUTO 4.95 K/mm3 (1.96-9.15); NEUTROPHILS PERCENT AUTO 58 % (41-73); Platelet Count 136 K/mm3 (150-400); RDW Standard Deviation 53.1 fL (35.1-46.3); White Blood Cell Count 8.48 K/mm3 (4.00-11.30)
[2021-06-16 15:07] LABS: Alanine Aminotransfer (ALT/SGP 35 U/L (12-78); Albumin, Blood 3.4 g/dL (3.4-5.0); Albumin/Globulin Ratio 0.8 (0.8-1.8); Alk Phos 42 U/L (40-126); Anion Gap 10 mmol/L (6-16); Aspartate Aminotrans (AST/SGOT 20 U/L (12-37); Bilirubin, Total 0.6 mg/dL (0.1-1.0); Blood Urea Nitrogen 19 mg/dL (8-24); CO2, Blood 27 mmol/L (21-32); Calcium, Blood 8.7 mg/dL (8.5-10.1); Chloride, Blood 97 mmol/L (98-108); Creatinine, Blood 1.12 mg/dL (0.60-1.20); Globulin, Blood 4.1 g/dL (2.2-4.0); Glomerular Filtration Rate >60 (60-); Glucose, Blood 72 mg/dL (70-99); Potassium, Blood 4.3 mmol/L (3.5-5.5); Sodium, Blood 134 mmol/L (136-145); Total Protein, Blood 7.5 g/dL (6.4-8.2); Troponin I <0.017 ng/mL (0.000-0.040)
== END | disposition home or self-care (01) ==
LOC: LAB SHORT 14:48 → LAB 14:48
PROVIDERS: Chiropractor
DX: R55 Syncope and collapse (principal)
CPT/HCPCS: 80053; 83880; 84484; 85025

== ENCOUNTER → 2021-06-24 | Outpatient (CLI) | payer MEDICARE | END | disposition home or self-care (01) | LOC: LAB SHORT 15:06 | DX: N31.9 Neuromuscular dysfunction of bladder, unspecified (principal); R30.0 Dysuria | CPT/HCPCS: 87086; 87102 ==

== ENCOUNTER 2021-12-06 16:25 | Emergency (ER) | payer MEDICARE ==
[~2021-12-06] VITALS: Ht 175.3 cm; Wt 104.3 kg
[2021-12-06 17:30] LABS: BASOPHILS ABSOLUTE AUTO 0.05 K/mm3 (0.00-0.23); BASOPHILS PERCENT AUTO 1 % (0-2); EOSINOPHILS ABSOLUTE AUTO 0.06 K/mm3 (0.00-0.68); EOSINOPHILS PERCENT AUTO 1 % (0-6); Hematocrit 42.1 % (37.0-53.0); Hemoglobin 14.1 g/dL (13.5-17.5); IMMATURE GRAN ABSOLUTE AUTO 0.06 K/mm3 (0.00-0.10); IMMATURE GRAN PERCENT AUTO 1 % (0-1); LYMPHOCYTES PERCENT AUTO 24 % (21-46); MONOCYTES ABSOLUTE AUTO 0.55 K/mm3 (0.16-1.47); MONOCYTES PERCENT AUTO 9 % (4-13); Mean Corpuscular HGB 31.4 pg (26.0-34.0); Mean Corpuscular HGB Conc 33.5 g/dL (31.5-36.5); Mean Corpuscular Volume 94 fL (80-100); Mean Platelet Volume 11.8 fL (9.1-12.4); NEUTROPHILS PERCENT AUTO 65 % (41-73); Platelet Count 155 K/mm3 (150-400); RDW Coefficient Variation 13.3 % (11.7-14.2); RDW Standard Deviation 46.6 fL (35.1-46.3); Red Blood Cell Count 4.49 M/mm3 (4.30-5.90); White Blood Cell Count 6.32 K/mm3 (4.00-11.30)
[2021-12-06 17:47] LABS: Alanine Aminotransfer (ALT/SGP 32 U/L (12-78); Albumin, Blood 3.9 g/dL (3.4-5.0); Albumin/Globulin Ratio 1.1 (0.8-1.8); Alk Phos 40 U/L (50-136); Anion Gap 6 mmol/L (6-16); Aspartate Aminotrans (AST/SGOT 22 U/L (12-37); Bilirubin, Total 0.6 mg/dL (0.1-1.0); Blood Urea Nitrogen 17 mg/dL (8-24); CO2, Blood 23 mmol/L (21-32); Calcium, Blood 8.9 mg/dL (8.5-10.1); Chloride, Blood 100 mmol/L (98-108); Creatinine, Blood 1.06 mg/dL (0.60-1.20); Globulin, Blood 3.7 g/dL (2.2-4.0); Glomerular Filtration Rate >60 (60-); Glucose, Blood 122 mg/dL (70-99); Potassium, Blood 3.8 mmol/L (3.5-5.5); Sodium, Blood 129 mmol/L (136-145); Total Protein, Blood 7.6 g/dL (6.4-8.2)
[2021-12-06] MEDS ORDERED: IMBRUVICA420 MG PO (18:28)
[2021-12-06] MEDS ORDERED: DONE5 PO (18:28)
[2021-12-06 18:51] LABS: Influenza A, PCR NEGATIVE (NEGATIVE); Influenza B, PCR NEGATIVE (NEGATIVE); Resp Syncytial Virus, PCR NEGATIVE (NEGATIVE); SARS-Cov-2 (COVID-19) PCR, MMC NEGATIVE (NEGATIVE)
[2021-12-06 19:01] LABS: Source, Urine Voided
[2021-12-06 19:10] LABS: Bilirubin, Urine Neg (Neg); Blood, Urine 3+ (Neg); Glucose Qualitative, Urine Neg (Neg); Ketones, Urine 2+ (Neg); Leukocyte Esterase, Urine Neg (Neg); Nitrite, Urine Neg (Neg); Protein, Urine 1+ (Neg); Urobilinogen, Urine NORM (Normal)
[2021-12-06 19:18] LABS: Color, Urine Pale Yellow (P-Yellow)
[2021-12-06 19:19] LABS: Appearance, Urine Hazy (Clear); Bacteria Rare /hpf; Squamous Epithelial Cells Rare /hpf (Few); White Blood Cells, Urine 0-2 /hpf (0-5)
== END 2021-12-06 21:31 | disposition home or self-care (01) ==
LOC: ER 16:25
PROVIDERS: Emergency Medicine
DX: R33.9 Retention of urine, unspecified (principal); Z20.822 Contact with and (suspected) exposure to COVID-19; I10 Essential (primary) hypertension; E03.9 Hypothyroidism, unspecified; Z79.899 Other long term (current) drug therapy
CPT/HCPCS: 0241U; 51702; 70450; 80053; 81001; 83690; 84484; 85025; 93005; 93010; J2405; J2550

== ENCOUNTER → 2021-12-09 | Outpatient (CLI) | payer MEDICARE ==
[~2021-12-09] MED LIST changes: +Cefpodoxime Pr100 MG PO; +DONE5 PO; +ESCI20 PO; +EUTHYROX50 MCG PO; +IMBRUVICA420 MG PO; -LATA.005SO OD; -LEVSOD100 PO; +SIMBRINZA 1%-0.28 ML BOTHEYES
[2021-12-09 17:58] LABS: Albumin, Blood 3.7 g/dL (3.4-5.0); Anion Gap 8 mmol/L (6-16); Blood Urea Nitrogen 19 mg/dL (8-24); Bun/Creatinine Ratio 16.4 (12.0-20.0); CO2, Blood 28 mmol/L (21-32); Calcium, Blood 8.5 mg/dL (8.5-10.1); Chloride, Blood 96 mmol/L (98-108); Creatinine, Blood 1.16 mg/dL (0.60-1.20); Glomerular Filtration Rate 60 (60-); Glucose, Blood 115 mg/dL (70-99); Phosphorus, Blood 3.6 mg/dL (2.5-4.9); Potassium, Blood 4.7 mmol/L (3.5-5.5); Sodium, Blood 132 mmol/L (136-145)
== END | disposition home or self-care (01) ==
LOC: LAB 17:44 → LAB SHORT 17:44
PROVIDERS: Chiropractor
DX: E87.1 Hypo-osmolality and hyponatremia (principal); R33.9 Retention of urine, unspecified
CPT/HCPCS: 80069; 87077; 87086; 87186

== ENCOUNTER 2021-12-10 10:55 | Inpatient (IN) | payer MEDICARE ==
[~2021-12-10] VITALS: Ht 175.3 cm; Wt 99.7 kg
[~2021-12-10 10:55] MED LIST changes: -Cefpodoxime Pr100 MG PO; -GABA300 PO; -SIMBRINZA 1%-0.28 ML BOTHEYES
[2021-12-10] MEDS ORDERED: SIMBRINZA 1%-0.28 ML BOTHEYES (11:10)
[2021-12-10 11:14] LABS: Source, Urine Clean Catch
[2021-12-10 11:20] LABS: Appearance, Urine Cloudy (Clear); Bilirubin, Urine Neg (Neg); Blood, Urine 5+ (Neg); Color, Urine Yellow (P-Yellow); Glucose Qualitative, Urine Neg (Neg); Ketones, Urine Neg (Neg); Leukocyte Esterase, Urine 1+ (Neg); Nitrite, Urine Neg (Neg); Protein, Urine 1+ (Neg); Urobilinogen, Urine NORM (Normal)
[2021-12-10 11:22] LABS: BASOPHILS ABSOLUTE AUTO 0.04 K/mm3 (0.00-0.23); BASOPHILS PERCENT AUTO 1 % (0-2); EOSINOPHILS ABSOLUTE AUTO 0.04 K/mm3 (0.00-0.68); EOSINOPHILS PERCENT AUTO 1 % (0-6); Hematocrit 41.1 % (37.0-53.0); Hemoglobin 13.8 g/dL (13.5-17.5); IMMATURE GRAN ABSOLUTE AUTO 0.07 K/mm3 (0.00-0.10); IMMATURE GRAN PERCENT AUTO 1 % (0-1); LYMPHOCYTES ABSOLUTE AUTO 2.09 K/mm3 (0.84-5.20); LYMPHOCYTES PERCENT AUTO 27 % (21-46); MONOCYTES ABSOLUTE AUTO 0.67 K/mm3 (0.16-1.47); MONOCYTES PERCENT AUTO 9 % (4-13); Mean Corpuscular HGB 31.7 pg (26.0-34.0); Mean Corpuscular HGB Conc 33.6 g/dL (31.5-36.5); Mean Corpuscular Volume 94 fL (80-100); Mean Platelet Volume 11.3 fL (9.1-12.4); NEUTROPHILS ABSOLUTE AUTO 4.83 K/mm3 (1.96-9.15); NEUTROPHILS PERCENT AUTO 62 % (41-73); Platelet Count 168 K/mm3 (150-400); RDW Coefficient Variation 13.5 % (11.7-14.2); RDW Standard Deviation 47.6 fL (35.1-46.3); Red Blood Cell Count 4.36 M/mm3 (4.30-5.90); White Blood Cell Count 7.74 K/mm3 (4.00-11.30)
[2021-12-10 11:39] LABS: Alanine Aminotransfer (ALT/SGP 29 U/L (12-78); Albumin, Blood 3.4 g/dL (3.4-5.0); Albumin/Globulin Ratio 0.9 (0.8-1.8); Alk Phos 39 U/L (50-136); Anion Gap 7 mmol/L (6-16); Aspartate Aminotrans (AST/SGOT 18 U/L (12-37); Bilirubin, Total 0.7 mg/dL (0.1-1.0); Blood Urea Nitrogen 17 mg/dL (8-24); Bun/Creatinine Ratio 16.8 (12.0-20.0); CO2, Blood 27 mmol/L (21-32); Calcium, Blood 8.9 mg/dL (8.5-10.1); Chloride, Blood 98 mmol/L (98-108); Creatinine, Blood 1.01 mg/dL (0.60-1.20); Globulin, Blood 3.9 g/dL (2.2-4.0); Glomerular Filtration Rate >60 (60-); Glucose, Blood 120 mg/dL (70-99); Potassium, Blood 4.6 mmol/L (3.5-5.5); Sodium, Blood 132 mmol/L (136-145); Total Protein, Blood 7.3 g/dL (6.4-8.2)
[2021-12-10 11:40] LABS: Red Blood Cells, Urine 50-100 /hpf (0-2)
[2021-12-10 11:41] LABS: Amorphous Heavy (0-Heavy); Bacteria Mod /hpf; Squamous Epithelial Cells Rare /hpf (Few)
[2021-12-10 11:42] LABS: Granular Casts 0-2 /lpf (0); Triple Phosphate Crystals Few /hpf
[2021-12-10] MEDS ORDERED: GABA300 PO (17:24)
--- NOTE | 2021-12-10 19:35 | NUR ---
SHIFT SUMMARY PATIENT ADMITTED FROM ER FOR WEAKNESS. PATIENT IS A&O X3 FORGETFUL AT TIMES. ON RA. PREVIOUS PACEMAKER PRESENT ON L CHEST. PATIENT ELEVATED BP ON ARRIVAL. DOCTOR NOTIFIED AND ORDERS PLACED. ABDOMINAL FOLD SKIN RASH NOTED. PATIENT INCONTIN AT TIMES, ATTENDS IN PLACE. AT BEDSIDE. REPORT GIVEN TO ONCOMING RN.
[2021-12-11 04:54] LABS: BASOPHILS ABSOLUTE AUTO 0.04 K/mm3 (0.00-0.23); BASOPHILS PERCENT AUTO 1 % (0-2); EOSINOPHILS ABSOLUTE AUTO 0.06 K/mm3 (0.00-0.68); EOSINOPHILS PERCENT AUTO 1 % (0-6); Hematocrit 40.9 % (37.0-53.0); Hemoglobin 13.4 g/dL (13.5-17.5); IMMATURE GRAN ABSOLUTE AUTO 0.06 K/mm3 (0.00-0.10); IMMATURE GRAN PERCENT AUTO 1 % (0-1); LYMPHOCYTES ABSOLUTE AUTO 1.56 K/mm3 (0.84-5.20); LYMPHOCYTES PERCENT AUTO 23 % (21-46); MONOCYTES PERCENT AUTO 9 % (4-13); Mean Corpuscular HGB 31.5 pg (26.0-34.0); Mean Corpuscular HGB Conc 32.8 g/dL (31.5-36.5); Mean Corpuscular Volume 96 fL (80-100); Mean Platelet Volume 11.2 fL (9.1-12.4); NEUTROPHILS ABSOLUTE AUTO 4.37 K/mm3 (1.96-9.15); NEUTROPHILS PERCENT AUTO 65 % (41-73); Platelet Count 164 K/mm3 (150-400); RDW Coefficient Variation 13.4 % (11.7-14.2); RDW Standard Deviation 47.6 fL (35.1-46.3); Red Blood Cell Count 4.26 M/mm3 (4.30-5.90); White Blood Cell Count 6.69 K/mm3 (4.00-11.30)
[2021-12-11 05:24] LABS: Anion Gap 5 mmol/L (6-16); Blood Urea Nitrogen 15 mg/dL (8-24); Bun/Creatinine Ratio 15.4 (12.0-20.0); CO2, Blood 28 mmol/L (21-32); Calcium, Blood 8.7 mg/dL (8.5-10.1); Chloride, Blood 99 mmol/L (98-108); Creatinine, Blood 0.97 mg/dL (0.60-1.20); Glomerular Filtration Rate >60 (60-); Glucose, Blood 106 mg/dL (70-99); Magnesium, Blood 2.4 mg/dL (1.6-2.4); Potassium, Blood 4.7 mmol/L (3.5-5.5); Sodium, Blood 132 mmol/L (136-145)
--- NOTE | 2021-12-11 05:24 | NUR ---
PT HAS BEEN IRRATABLE AND COMPLAINING OF INADEQUATE CARE OVERNIGHT. AT SHIFT CHANGE PT C/O NOT BEING GIVEN A DINNER TRAY OR ANYTHING TO DRINK. PT HAD WATER CUP ON BEDSIDE TABLE, THIS RN OFFERED PT FOOD FROM THE PANTRY PER PT DIET BUT PT REFUSED AND WAS MORE CONCERNED ABOUT NOT BEING GIVEN FOOD HOURS BEFOREHAND. NOTIFIED BATTER MIXER HELPER OF THE SITUATION. THIS RN WAS ABLE TO CALM THE PT DOWN, HELPED FIND A COMFORTABLE POSITIONM, TAKE MEDICATIONS, AND HAVE A JELLO TO EAT. PT WAS FINE FOR A COUPLE OF HOURS UNTIL THE PT BECAME IRRATABLE AGAIN. TRIED TO CALM THE PT DOWN FOR A SECOND TIME BUT THE PT WAS NOT COOPERATIVE. PT IS ALERT AND ORIENTED X 3-4, PT APPEARS TO BE SLIGHTLY CONFUSED AT TIMES. BP CONTINUES TO REMAIN HIGH, A DOSE OF LABETALOL GIVEN PER EMAR. OTHERWISE NO ACUTE EVENTS OVERNIGHT, PT CALL LIGHT AND BELONGING WITHIN REACH.
--- NOTE | 2021-12-11 16:22 | NUR ---
DAY SHIFT SUMMARY 86 YR OLD MALE PT ADMITTED WITH POSTURAL DIZZINESS WITH PRESYNCOPE, ALSO WITH UTI. MOISTURE WOUNDS TO UNDERBELLY. PT ON TELE AND HAS A PACEMAKER. TELE READING OF PACE AT 71. PT ON RA. POSSIBLE DC TOMORROW. CALL LIGHT WITHIN REACH, ABLE TO CALL APPROPRIATELY. AT BEDSIDE FOR FIRST PART OF SHIFT, GOOGLING ALL MEDS GIVEN FOR SIDE EFFECTS, ALSO GOOGLING MEDS GIVEN BY SHAPE AND COLOR THE SPECULATING THAT IT IS A DIFFERENT MED THAN WHAT WE STATED WAS BEING GIVEN. EDUCATION PROVIDED TO . PT IS CONFUSED (DEMENTIA). FREQUENT ROUNDING ON PT. NO ACUTE CHANGES THIS SHIFT.
--- NOTE | 2021-12-12 05:37 | NUR ---
PT IS SLEEPING PEACEFULLY THIS AM, PT MORE PLEASANT TONIGHT THAN LAST NIGHT. PT IS ALERT BUT HAS BITS OF CONFUSION IN TIME AND PLACE, TELE- AV PACED IN THE 70'S, ON RA SATTING >95, PT IS INCONTINENT, RASH UNDER BELLY TREATED WITH BABY POWDER. NO ACUTE EVENTS OVERNIGHT, PT CALL LIGHT AND BELONGINGS WITHIN REACH.
[2021-12-12] MEDS ORDERED: LISI20 PO (10:49)
[2021-12-12] MEDS ORDERED: Cefpodoxime Pr100 MG PO (10:49)
--- NOTE | 2021-12-12 14:04 | NUR ---
DISCHARGE SUMMARY IV AND TELE REMOVED PRIOR TO DISCHARGE. DISCHARGE EDUCATION REVIEWED WITH PT AND AND SIGNED BY . PT TRANSPORTED VIA WHEELCHAIR TO [facility] TO HIS RIDE ALONG WITH HIS PERSONAL BELONGINGS. MEDS FAXED TO PHARMACY.
== END 2021-12-12 13:02 | disposition home or self-care (01) | DRG 690 ==
LOC: ER 10:55 → MEDS 10:56 → ENPENDDIS 12-12 09:55 → MEDS 12-12 13:02
PROVIDERS: Emergency Medicine; ADMIT Internal Medicine
PROC: 4B02XSZ Measurement of Cardiac Pacemaker, External Approach (ICD-10-PCS; principal; 2021-12-10)
DX: N39.0 Urinary tract infection, site not specified (principal); I16.1 Hypertensive emergency; E87.1 Hypo-osmolality and hyponatremia; G93.49 Other encephalopathy; E78.5 Hyperlipidemia, unspecified; I25.10 Atherosclerotic heart disease of native coronary artery without angina pectoris; B96.20 Unspecified Escherichia coli [E. coli] as the cause of diseases classified elsewhere; M10.9 Gout, unspecified; E03.9 Hypothyroidism, unspecified; E11.42 Type 2 diabetes mellitus with diabetic polyneuropathy; I49.5 Sick sinus syndrome; K21.9 Gastro-esophageal reflux disease without esophagitis; F32.9 Major depressive disorder, single episode, unspecified; F03.90 Unspecified dementia, unspecified severity, without behavioral disturbance, psychotic disturbance, mood disturbance, and anxiety; Z28.21 Immunization not carried out because of patient refusal; R32 Unspecified urinary incontinence; I10 Essential (primary) hypertension; J45.909 Unspecified asthma, uncomplicated; Z86.79 Personal history of other diseases of the circulatory system; Z95.0 Presence of cardiac pacemaker; Z88.8 Allergy status to other drugs, medicaments and biological substances; Z79.899 Other long term (current) drug therapy; Z90.89 Acquired absence of other organs; Z90.49 Acquired absence of other specified parts of digestive tract; Z98.890 Other specified postprocedural states
CPT/HCPCS: 36415; 71045; 80048; 80053; 81001; 83735; 83880; 84484; 85025; 87077; 87086; 87186; 93005; 93010; 96372; 96374; 96375; 96376; 99285-25; A9270; G0378; J0696; J1650

== ENCOUNTER 2022-01-02 08:54 | Observation (INO) | payer MEDICARE ==
[~2022-01-02] VITALS: Ht 175.3 cm; Wt 93.0 kg
[~2022-01-02 08:54] MED LIST changes: -CENTRUM COMPLE1 EACH PO; +CENTRUM SILVER1 EAC2 PO; +Cefpodoxime Pr100 MG PO; +GABA300 PO; +SIMBRINZA 1%-0.28 ML BOTHEYES
[2022-01-02 09:40] LABS: BASOPHILS ABSOLUTE AUTO 0.03 K/mm3 (0.00-0.23); BASOPHILS PERCENT AUTO 1 % (0-2); EOSINOPHILS ABSOLUTE AUTO 0.04 K/mm3 (0.00-0.68); EOSINOPHILS PERCENT AUTO 1 % (0-6); Hematocrit 41.4 % (37.0-53.0); Hemoglobin 13.7 g/dL (13.5-17.5); IMMATURE GRAN ABSOLUTE AUTO 0.03 K/mm3 (0.00-0.10); IMMATURE GRAN PERCENT AUTO 1 % (0-1); LYMPHOCYTES ABSOLUTE AUTO 1.84 K/mm3 (0.84-5.20); LYMPHOCYTES PERCENT AUTO 29 % (21-46); MONOCYTES ABSOLUTE AUTO 0.47 K/mm3 (0.16-1.47); MONOCYTES PERCENT AUTO 7 % (4-13); Mean Corpuscular HGB 31.5 pg (26.0-34.0); Mean Corpuscular HGB Conc 33.1 g/dL (31.5-36.5); Mean Corpuscular Volume 95 fL (80-100); Mean Platelet Volume 11.5 fL (9.1-12.4); NEUTROPHILS ABSOLUTE AUTO 3.97 K/mm3 (1.96-9.15); NEUTROPHILS PERCENT AUTO 62 % (41-73); Platelet Count 122 K/mm3 (150-400); RDW Coefficient Variation 13.5 % (11.7-14.2); RDW Standard Deviation 47.8 fL (35.1-46.3); Red Blood Cell Count 4.35 M/mm3 (4.30-5.90); White Blood Cell Count 6.38 K/mm3 (4.00-11.30)
[2022-01-02 10:04] LABS: Alanine Aminotransfer (ALT/SGP 26 U/L (12-78); Albumin, Blood 3.3 g/dL (3.4-5.0); Alk Phos 35 U/L (50-136); Anion Gap 2 mmol/L (6-16); Aspartate Aminotrans (AST/SGOT 13 U/L (12-37); Bilirubin, Total 0.7 mg/dL (0.1-1.0); Blood Urea Nitrogen 14 mg/dL (8-24); Bun/Creatinine Ratio 14.9 (12.0-20.0); CO2, Blood 29 mmol/L (21-32); Calcium, Blood 8.5 mg/dL (8.5-10.1); Chloride, Blood 103 mmol/L (98-108); Creatinine, Blood 0.94 mg/dL (0.60-1.20); Free Thyroxine 1.37 ng/dL (0.70-1.60); Globulin, Blood 3.4 g/dL (2.2-4.0); Glomerular Filtration Rate >60 (60-); Glucose, Blood 103 mg/dL (70-99); Potassium, Blood 4.7 mmol/L (3.5-5.5); Sodium, Blood 134 mmol/L (136-145); Total Protein, Blood 6.7 g/dL (6.4-8.2); Triiodothyronine, Free 1.61 pg/mL (2.18-3.98)
[2022-01-02 10:12] LABS: Source, Urine Straight Cath
[2022-01-02 10:17] LABS: Appearance, Urine Clear (Clear); Bilirubin, Urine Neg (Neg); Blood, Urine 2+ (Neg); Color, Urine Yellow (P-Yellow); Glucose Qualitative, Urine Neg (Neg); Ketones, Urine Neg (Neg); Leukocyte Esterase, Urine Neg (Neg); Nitrite, Urine Neg (Neg); Protein, Urine Neg (Neg); Specific Gravity, Urine 1.015 (1.003-1.022); Urobilinogen, Urine NORM (Normal)
[2022-01-02 10:40] LABS: Bacteria Not Seen /hpf; Squamous Epithelial Cells Not Seen /hpf (Few); White Blood Cells, Urine Not Seen /hpf (0-5)
[2022-01-02 12:41] LABS: CPK Creatine Kinase 45 U/L (39-308)
[2022-01-02] MEDS ORDERED: Prinivil10 MG PO (12:48)
[2022-01-02] MEDS ORDERED: DONEPEZIL HCL10 M1 PO (12:52)
--- NOTE | 2022-01-02 16:46 | NUR ---
SWALLOW EVALUATION PATIENT PASSED BEDSIDE SWALLOW EVALUATION WITH NO ISSUES. CONFIRMED WITH DOCTOR TO PROCEED TO CARDIAC DIET.
[2022-01-02] MEDS ORDERED: DONEPEZIL HCL10 MG PO (18:26)
--- NOTE | 2022-01-02 19:23 | NUR ---
SHIFT SUMMARY PATIENT ADMITTED FROM ER FOR INCREASED WEAKNESS. PATIENT RECENTLY STARTED NEW MEDICATION AT HOME. PATIENT HAS A HISTORY OF A-FIB WITH A PACEMAKER PRESENT. ON TELE. ON RA AND STONE DECORATOR READING MID 90S. PASSED BEDSIDE SWALLOW EVALUATION AND ADVANCED TO ORDERED DIET. WORKED WITH PT TODAY. INCONT WITH ATTENDS IN PLACE. CURRENTLY AT BEDSIDE. WILL CONTINUE TO MONITOR.
[2022-01-03 05:41] LABS: BASOPHILS ABSOLUTE AUTO 0.04 K/mm3 (0.00-0.23); BASOPHILS PERCENT AUTO 1 % (0-2); EOSINOPHILS ABSOLUTE AUTO 0.07 K/mm3 (0.00-0.68); EOSINOPHILS PERCENT AUTO 1 % (0-6); Hematocrit 39.1 % (37.0-53.0); Hemoglobin 13.1 g/dL (13.5-17.5); IMMATURE GRAN ABSOLUTE AUTO 0.04 K/mm3 (0.00-0.10); IMMATURE GRAN PERCENT AUTO 1 % (0-1); LYMPHOCYTES ABSOLUTE AUTO 1.88 K/mm3 (0.84-5.20); LYMPHOCYTES PERCENT AUTO 27 % (21-46); MONOCYTES ABSOLUTE AUTO 0.61 K/mm3 (0.16-1.47); MONOCYTES PERCENT AUTO 9 % (4-13); Mean Corpuscular HGB 31.6 pg (26.0-34.0); Mean Corpuscular HGB Conc 33.5 g/dL (31.5-36.5); Mean Corpuscular Volume 94 fL (80-100); Mean Platelet Volume 11.5 fL (9.1-12.4); NEUTROPHILS ABSOLUTE AUTO 4.34 K/mm3 (1.96-9.15); NEUTROPHILS PERCENT AUTO 62 % (41-73); Platelet Count 120 K/mm3 (150-400); RDW Coefficient Variation 13.5 % (11.7-14.2); Red Blood Cell Count 4.15 M/mm3 (4.30-5.90); White Blood Cell Count 6.98 K/mm3 (4.00-11.30)
[2022-01-03 05:57] LABS: Anion Gap 4 mmol/L (6-16); Blood Urea Nitrogen 15 mg/dL (8-24); Bun/Creatinine Ratio 16.1 (12.0-20.0); CO2, Blood 27 mmol/L (21-32); Calcium, Blood 8.7 mg/dL (8.5-10.1); Chloride, Blood 102 mmol/L (98-108); Creatinine, Blood 0.93 mg/dL (0.60-1.20); Glomerular Filtration Rate >60 (60-); Glucose, Blood 86 mg/dL (70-99); Phosphorus, Blood 3.8 mg/dL (2.5-4.9); Potassium, Blood 4.2 mmol/L (3.5-5.5); Sodium, Blood 133 mmol/L (136-145)
--- NOTE | 2022-01-03 06:44 | NUR ---
Patient was transferred with all belongings to room 329. Pt re-oriented to room and call light re-explained. Pt took meds whole in applesauce without difficulty. Pt tolerates regular liquids fine. Attends dry and in place.
--- NOTE | 2022-01-03 06:47 | NUR ---
Rn summary: Patient is alert and oriented x3. He is pleasant and cooperative. Neuro checks have been unchanged through night. Pt states he feels stronger this am. Pt rested in between cares, but did not sleep well due to noise. Pt is incontinent of urine, attends in place. Pt needs assist to turn and reposition. Pt seems "stiff". Pt has skin breakdown under panis, protective cream applied. Sl red in groin, improving with good constance care.
--- NOTE | 2022-01-03 18:35 | NUR ---
SHIFT SUMMARY PT IN BED UNTIL SEEN BY PT/OT. UP TO BATHROOM TO BRUSH HIS TEETH AND THEN AMBULATED IN THE HALLWAY USING FWW. HERE AT LUNCH AND THEN AT SUPPERTIME. PT BEGAN TO SUN DOWN APPROX SUPPERTIME STATING HE ISN'T A PT AND WHY IS HE BEING FED. DISCUSSED MEMORY ISSUES AND COMING TO VISIT. PT DID CALM AND EAT SUPPER.
--- NOTE | 2022-01-04 04:40 | NUR ---
SHIFT SUMMARY - NO ACUTE CHANGES THIS SHIFT. PT HAS SLEPT THROUGHOUT MOST OF THE NIGHT. IV CONTINUES INFUSING WITHOUT COMPLICATIONS TO RIGHT AC IV SITE. PT HAS BEEN APPROPRIATE IN HIS BEHAVIOR. FLUIDS AT BEDSIDE. CALL LIGHT WITHIN REACH. BED IN LOW POSITION. WILL CONTINUE TO MONITOR UNTIL AM SHIFT CHANGE.
[2022-01-04 04:54] LABS: BASOPHILS ABSOLUTE AUTO 0.03 K/mm3 (0.00-0.23); BASOPHILS PERCENT AUTO 1 % (0-2); EOSINOPHILS ABSOLUTE AUTO 0.05 K/mm3 (0.00-0.68); EOSINOPHILS PERCENT AUTO 1 % (0-6); Hematocrit 37.1 % (37.0-53.0); Hemoglobin 12.9 g/dL (13.5-17.5); IMMATURE GRAN ABSOLUTE AUTO 0.03 K/mm3 (0.00-0.10); IMMATURE GRAN PERCENT AUTO 1 % (0-1); LYMPHOCYTES ABSOLUTE AUTO 1.91 K/mm3 (0.84-5.20); LYMPHOCYTES PERCENT AUTO 35 % (21-46); MONOCYTES ABSOLUTE AUTO 0.48 K/mm3 (0.16-1.47); MONOCYTES PERCENT AUTO 9 % (4-13); Mean Corpuscular HGB Conc 34.8 g/dL (31.5-36.5); Mean Corpuscular Volume 92 fL (80-100); Mean Platelet Volume 11.2 fL (9.1-12.4); NEUTROPHILS ABSOLUTE AUTO 3.01 K/mm3 (1.96-9.15); NEUTROPHILS PERCENT AUTO 55 % (41-73); Platelet Count 123 K/mm3 (150-400); RDW Coefficient Variation 13.2 % (11.7-14.2); RDW Standard Deviation 44.8 fL (35.1-46.3); Red Blood Cell Count 4.03 M/mm3 (4.30-5.90); White Blood Cell Count 5.51 K/mm3 (4.00-11.30)
[2022-01-04 05:07] LABS: Anion Gap 6 mmol/L (6-16); Blood Urea Nitrogen 14 mg/dL (8-24); Bun/Creatinine Ratio 16.1 (12.0-20.0); CO2, Blood 24 mmol/L (21-32); Calcium, Blood 8.5 mg/dL (8.5-10.1); Chloride, Blood 104 mmol/L (98-108); Creatinine, Blood 0.87 mg/dL (0.60-1.20); Glomerular Filtration Rate >60 (60-); Glucose, Blood 94 mg/dL (70-99); Potassium, Blood 3.9 mmol/L (3.5-5.5); Sodium, Blood 134 mmol/L (136-145)
--- NOTE | 2022-01-04 18:56 | NUR ---
SHIFT SUMMARY PT UP TO CHAIR FOR MEALS. IN TO VISIT FOR SHORT TIME MORNING, AFTERNOON AND EVENING. PT MORE AWARE OF SURROUNDING THIS EVENING. NO REPORTS OF DISTRESS OR FEELING UNABLE TO COMPLETE TASKS ASK OF HIM TO PERFORM BUT DOES NEED REMINDING OF WHAT HES TO DO.
--- NOTE | 2022-01-04 22:30 | NUR ---
ASSISTED BACK TO BED AT [facility] BEDS[facility]. VERBALLY ANNOYED, VOICED FRUSTRATION. TOLERATED HS MEDS WITH APPLESAUCE. CALL LIGHT IN REACH
--- NOTE | 2022-01-05 05:32 | NUR ---
COURT ASSISTANT SUMMARY WAS ASSISTED TO BAD AT HS FROM CHAIR NEAR BEDSIDE. HASBEEN RSTING QUIETLY WITH FEW INTERUPTIONS SINCE. CALL LIGHT IN REACH. HOB ELEVATED FOR COMFORT. MED TELE CONTINUES - SEE DOC FLOW SHEETS FOR DETAILS
[2022-01-05 06:23] LABS: BASOPHILS ABSOLUTE AUTO 0.04 K/mm3 (0.00-0.23); BASOPHILS PERCENT AUTO 1 % (0-2); EOSINOPHILS ABSOLUTE AUTO 0.07 K/mm3 (0.00-0.68); EOSINOPHILS PERCENT AUTO 1 % (0-6); Hematocrit 36.6 % (37.0-53.0); Hemoglobin 12.4 g/dL (13.5-17.5); IMMATURE GRAN ABSOLUTE AUTO 0.03 K/mm3 (0.00-0.10); IMMATURE GRAN PERCENT AUTO 1 % (0-1); LYMPHOCYTES ABSOLUTE AUTO 2.31 K/mm3 (0.84-5.20); LYMPHOCYTES PERCENT AUTO 40 % (21-46); MONOCYTES ABSOLUTE AUTO 0.58 K/mm3 (0.16-1.47); MONOCYTES PERCENT AUTO 10 % (4-13); Mean Corpuscular HGB 31.6 pg (26.0-34.0); Mean Corpuscular HGB Conc 33.9 g/dL (31.5-36.5); Mean Corpuscular Volume 93 fL (80-100); Mean Platelet Volume 11.4 fL (9.1-12.4); NEUTROPHILS ABSOLUTE AUTO 2.82 K/mm3 (1.96-9.15); NEUTROPHILS PERCENT AUTO 48 % (41-73); Platelet Count 127 K/mm3 (150-400); RDW Coefficient Variation 13.3 % (11.7-14.2); RDW Standard Deviation 46.3 fL (35.1-46.3); Red Blood Cell Count 3.93 M/mm3 (4.30-5.90); White Blood Cell Count 5.85 K/mm3 (4.00-11.30)
[2022-01-05 06:35] LABS: Anion Gap 5 mmol/L (6-16); Blood Urea Nitrogen 20 mg/dL (8-24); CO2, Blood 26 mmol/L (21-32); Calcium, Blood 8.7 mg/dL (8.5-10.1); Chloride, Blood 101 mmol/L (98-108); Creatinine, Blood 1.05 mg/dL (0.60-1.20); Glomerular Filtration Rate >60 (60-); Glucose, Blood 84 mg/dL (70-99); Potassium, Blood 4.1 mmol/L (3.5-5.5); Sodium, Blood 132 mmol/L (136-145)
--- NOTE | 2022-01-05 18:32 | NUR ---
SHIFT SUMMARY PT A/O X2-3 AND PLEASANT. PT WORKED WITH OCCUPATIONAL AND PHYSICAL THERAPY TODAY. UP IN THE CHAIR AT MEAL TIMES. PT CONTINUES TO AWAIT PLACEMENT. VSS. WILL REPORT TO SHELBI ARMENTA.
[2022-01-06 05:39] LABS: BASOPHILS ABSOLUTE AUTO 0.03 K/mm3 (0.00-0.23); BASOPHILS PERCENT AUTO 1 % (0-2); EOSINOPHILS ABSOLUTE AUTO 0.09 K/mm3 (0.00-0.68); EOSINOPHILS PERCENT AUTO 2 % (0-6); Hematocrit 38.1 % (37.0-53.0); Hemoglobin 12.9 g/dL (13.5-17.5); IMMATURE GRAN ABSOLUTE AUTO 0.04 K/mm3 (0.00-0.10); IMMATURE GRAN PERCENT AUTO 1 % (0-1); LYMPHOCYTES ABSOLUTE AUTO 1.82 K/mm3 (0.84-5.20); LYMPHOCYTES PERCENT AUTO 35 % (21-46); MONOCYTES ABSOLUTE AUTO 0.47 K/mm3 (0.16-1.47); MONOCYTES PERCENT AUTO 9 % (4-13); Mean Corpuscular HGB 31.5 pg (26.0-34.0); Mean Corpuscular HGB Conc 33.9 g/dL (31.5-36.5); Mean Corpuscular Volume 93 fL (80-100); Mean Platelet Volume 10.9 fL (9.1-12.4); NEUTROPHILS ABSOLUTE AUTO 2.79 K/mm3 (1.96-9.15); NEUTROPHILS PERCENT AUTO 53 % (41-73); Platelet Count 123 K/mm3 (150-400); RDW Coefficient Variation 13.2 % (11.7-14.2); RDW Standard Deviation 45.3 fL (35.1-46.3); Red Blood Cell Count 4.09 M/mm3 (4.30-5.90); White Blood Cell Count 5.24 K/mm3 (4.00-11.30)
[2022-01-06 06:30] LABS: Anion Gap 7 mmol/L (6-16); Blood Urea Nitrogen 20 mg/dL (8-24); Bun/Creatinine Ratio 19.8 (12.0-20.0); CO2, Blood 24 mmol/L (21-32); Calcium, Blood 8.6 mg/dL (8.5-10.1); Chloride, Blood 101 mmol/L (98-108); Creatinine, Blood 1.01 mg/dL (0.60-1.20); Glomerular Filtration Rate >60 (60-); Glucose, Blood 85 mg/dL (70-99); Potassium, Blood 4.2 mmol/L (3.5-5.5); Sodium, Blood 132 mmol/L (136-145)
--- NOTE | 2022-01-06 06:30 | NUR ---
Patient is alert and oriented x2 forgets time and situation. Complains of minimal pain on neck, PRN tylenol given. Patient rested all night. One forgetful episode where he got up and forgot where he was and the time. Patient is incontinent, does not vocalize when he needs to be changed. This morning, patient's blood pressure was elevated 193/97 and 184/84, informed MD. Hydralazine 10mg IV q6 ordered. Medication given. Patient is asymptomatic. Call light within reach. Bed alarm on.
--- NOTE | 2022-01-06 10:05 | NUR ---
Pt up to shower with lpn medical assistant assist, a/ox2, forgetful, pleasant and cooperative with care, follows commands well, denies pain, lungs are clear, r/a, resp even and unlabored, no cough noted, hrr, tele in place running paced rhythm, no edema noted, ppp+2, cap refill<3sec, vs stable, afebrile, iv site is clear and patent, btx3, abd flat soft nontender, voids without diff, skin c.w.d, narinder, one person assist with a walker, miguel, call light in reach.
--- NOTE | 2022-01-06 17:15 | NUR ---
PT HAS BEEN DISCHARGED TO HOME, HIS HERE TO PICK HIM UP, IV REMOVED INTACT, WENT OVER INSTRUCTIONS WITH , SHE VERBALIZED UNDERSTANDING. LEFT WITH ALL BELONGINGS VIA WHEELCHAIR WITH FORM SETTER HELPER AND IN ATTENDENCE.
== END 2022-01-06 17:36 | disposition home health service (06) ==
LOC: ER 08:54 → MEDS 08:55
PROVIDERS: Emergency Medicine; Family Medicine; ADMIT Family Medicine
DX: R53.1 Weakness (principal); I48.0 Paroxysmal atrial fibrillation; C91.11 Chronic lymphocytic leukemia of B-cell type in remission; F32.A Depression, unspecified; E11.9 Type 2 diabetes mellitus without complications; E78.5 Hyperlipidemia, unspecified; I10 Essential (primary) hypertension; E03.9 Hypothyroidism, unspecified; G31.84 Mild cognitive impairment of uncertain or unknown etiology; N31.9 Neuromuscular dysfunction of bladder, unspecified; J45.909 Unspecified asthma, uncomplicated; I25.10 Atherosclerotic heart disease of native coronary artery without angina pectoris; H35.30 Unspecified macular degeneration; Z88.8 Allergy status to other drugs, medicaments and biological substances; Z66 Do not resuscitate; Z95.0 Presence of cardiac pacemaker
CPT/HCPCS: 36415; 51798; 70450; 80048; 80053; 80069; 81001; 82140; 82550; 82607; 82746; 83735; 84145; 84439; 84443; 84481; 84484; 85025; 86140; 87040; 92610; 93005; 93010; 94762; 96372; 96374; 97110; 97116; 97116-CQ; 97162; 97166; 97530; 97530-CO; 97530-CQ; 97535; 97535-CO; 99285-25; A9270; G0378; J0360; J1650

== ENCOUNTER → 2022-03-01 | Outpatient (CLI) | payer MEDICARE ==
[~2022-03-01] MED LIST changes: +DONEPEZIL HCL10 M1 PO; +DONEPEZIL HCL10 MG PO; +Prinivil10 MG PO
[2022-03-01 10:36] LABS: BASOPHILS ABSOLUTE AUTO 0.05 K/mm3 (0.00-0.23); BASOPHILS PERCENT AUTO 1 % (0-2); EOSINOPHILS ABSOLUTE AUTO 0.08 K/mm3 (0.00-0.68); EOSINOPHILS PERCENT AUTO 1 % (0-6); Hematocrit 40.8 % (37.0-53.0); Hemoglobin 13.8 g/dL (13.5-17.5); IMMATURE GRAN ABSOLUTE AUTO 0.07 K/mm3 (0.00-0.10); IMMATURE GRAN PERCENT AUTO 1 % (0-1); LYMPHOCYTES ABSOLUTE AUTO 2.06 K/mm3 (0.84-5.20); LYMPHOCYTES PERCENT AUTO 26 % (21-46); MONOCYTES ABSOLUTE AUTO 0.65 K/mm3 (0.16-1.47); MONOCYTES PERCENT AUTO 8 % (4-13); Mean Corpuscular HGB 31.9 pg (26.0-34.0); Mean Corpuscular HGB Conc 33.8 g/dL (31.5-36.5); Mean Corpuscular Volume 94 fL (80-100); Mean Platelet Volume 11.4 fL (9.1-12.4); NEUTROPHILS ABSOLUTE AUTO 5.14 K/mm3 (1.96-9.15); NEUTROPHILS PERCENT AUTO 64 % (41-73); Platelet Count 186 K/mm3 (150-400); RDW Coefficient Variation 13.5 % (11.7-14.2); RDW Standard Deviation 46.9 fL (35.1-46.3); Red Blood Cell Count 4.32 M/mm3 (4.30-5.90); White Blood Cell Count 8.05 K/mm3 (4.00-11.30)
[2022-03-01 10:48] LABS: Albumin, Blood 3.4 g/dL (3.4-5.0); Bilirubin, Total 0.8 mg/dL (0.1-1.0); Bun/Creatinine Ratio 13.8 (12.0-20.0); Calcium, Blood 8.6 mg/dL (8.5-10.1); Creatinine, Blood 1.09 mg/dL (0.60-1.20); Globulin, Blood 3.4 g/dL (2.2-4.0); Potassium, Blood 4.4 mmol/L (3.5-5.5); Total Protein, Blood 6.8 g/dL (6.4-8.2)
== END ==
LOC: LAB SHORT 10:31
PROVIDERS: Physician Assistant
DX: R53.83 Other fatigue (principal)
CPT/HCPCS: 80053; 85025

== ENCOUNTER → 2022-07-31 | Outpatient (CLI) | payer MEDICARE ==
[2022-07-31 13:28] LABS: Bun/Creatinine Ratio 15.5 (12.0-20.0); Calcium, Blood 8.7 mg/dL (8.5-10.1); Creatinine, Blood 1.1 mg/dL (0.60-1.20); Potassium, Blood 4.6 mmol/L (3.5-5.5)
[2022-07-31 13:39] LABS: Hematocrit 39.3 % (37.0-53.0); Hemoglobin 13.2 g/dL (13.5-17.5); Mean Corpuscular HGB 31.8 pg (26.0-34.0); Mean Corpuscular HGB Conc 33.6 g/dL (31.5-36.5); Mean Corpuscular Volume 95 fL (80-100); Mean Platelet Volume 9.8 fL (9.1-12.4); Platelet Count 173 K/mm3 (150-400); RDW Coefficient Variation 13.2 % (11.7-14.2); Red Blood Cell Count 4.15 M/mm3 (4.30-5.90); White Blood Cell Count 7.91 K/mm3 (4.00-11.30)
[2022-07-31 14:48] LABS: BASOPHILS ABSOLUTE MAN 0.07 K/mm3 (0.00-0.23); BASOPHILS PERCENT MAN 1 % (0-2); EOSINOPHILS PERCENT MAN 0 % (0-6); LYMPHOCYTES % ATYPICAL MANUAL 4 % (0-0); LYMPHOCYTES ABSOLUTE MAN 2.92 K/mm3 (0.84-5.20); LYMPHOCYTES PERCENT MAN 33 % (21-46); MONOCYTES ABSOLUTE MAN 0.55 K/mm3 (0.16-1.47); MONOCYTES PERCENT MAN 7 % (4-13); NEUTROPHILS ABSOLUTE MAN 4.35 K/mm3 (1.96-9.15); SEG NEUTROPHILS PERCENT MAN 55 % (41-73); TOTAL CELLS COUNTED 100
== END ==
LOC: LAB SHORT 13:15 → LAB 13:15
PROVIDERS: Physician Assistant Surgical
DX: R41.0 Disorientation, unspecified (principal)
CPT/HCPCS: 80048; 85025

== ENCOUNTER 2022-10-16 13:45 | Emergency (ER) | payer MEDICARE ==
[~2022-10-16] VITALS: Ht 177.8 cm; Wt 93.0 kg
== END 2022-10-16 16:32 | disposition home or self-care (01) ==
LOC: ER 13:45
DX: K20.90 Esophagitis, unspecified without bleeding (principal); I10 Essential (primary) hypertension; E03.9 Hypothyroidism, unspecified; Z79.899 Other long term (current) drug therapy; Z79.890 Hormone replacement therapy; Z88.8 Allergy status to other drugs, medicaments and biological substances
CPT/HCPCS: A9270

== ENCOUNTER → 2023-05-26 | Outpatient (CLI) | payer MEDICARE ==
[2023-05-26 10:30] LABS: BASOPHILS ABSOLUTE AUTO 0.03 K/mm3 (0.00-0.23); BASOPHILS PERCENT AUTO 0 % (0-2); EOSINOPHILS ABSOLUTE AUTO 0.19 K/mm3 (0.00-0.68); EOSINOPHILS PERCENT AUTO 2 % (0-6); Hematocrit 41.1 % (37.0-53.0); Hemoglobin 13.8 g/dL (13.5-17.5); Mean Corpuscular HGB 32.2 pg (26.0-34.0); Mean Corpuscular HGB Conc 33.6 g/dL (31.5-36.5); Mean Corpuscular Volume 96 fL (80-100); RDW Standard Deviation 45.8 fL (35.1-46.3); Red Blood Cell Count 4.28 M/mm3 (4.30-5.90); White Blood Cell Count 10.47 K/mm3 (4.00-11.30)
[2023-05-26 10:49] LABS: Calcium, Blood 9.3 mg/dL (8.5-10.1); Creatinine, Blood 1.17 mg/dL (0.60-1.20); Potassium, Blood 4.8 mmol/L (3.5-5.5)
[2023-05-26 10:53] LABS: IMMATURE GRAN ABSOLUTE AUTO 0.04 K/mm3 (0.00-0.10); IMMATURE GRAN PERCENT AUTO 0 % (0-1); LYMPHOCYTES ABSOLUTE AUTO 3.76 K/mm3 (0.84-5.20); LYMPHOCYTES PERCENT AUTO 36 % (21-46); MONOCYTES PERCENT AUTO 22 % (4-13); NEUTROPHILS ABSOLUTE AUTO 4.15 K/mm3 (1.96-9.15); NEUTROPHILS PERCENT AUTO 40 % (41-73)
[2023-05-26 11:58] LABS: Mean Platelet Volume 9.7 fL (9.1-12.4); Platelet Count 153 K/mm3 (150-400)
== END ==
LOC: LAB 10:26 → LAB SHORT 10:26
PROVIDERS: Physician Assistant Surgical
DX: R42 Dizziness and giddiness (principal)
CPT/HCPCS: 80048; 85025

== ENCOUNTER 2023-07-18 18:18 | Emergency (ER) | payer MEDICARE ==
[~2023-07-18] VITALS: Ht 180.3 cm; Wt 99.8 kg
[2023-07-18 18:23] VITALS: BP 153/97
== END 2023-07-18 21:20 | disposition left against medical advice (07) ==
LOC: ER 18:18
DX: M25.571 Pain in right ankle and joints of right foot (principal); Z79.899 Other long term (current) drug therapy; Z79.890 Hormone replacement therapy; Z53.21 Procedure and treatment not carried out due to patient leaving prior to being seen by health care provider
CPT/HCPCS: 73610; 99281-25

== ENCOUNTER 2023-11-29 19:38 | Emergency (ER) | payer MEDICARE ==
[~2023-11-29] VITALS: Ht 180.3 cm; Wt 97.5 kg
[2023-11-29 21:23] LABS: Albumin, Blood 3.2 g/dL (3.4-5.0); Bilirubin, Total 0.5 mg/dL (0.1-1.0); Calcium, Blood 8.8 mg/dL (8.5-10.1); Creatinine, Blood 1.12 mg/dL (0.60-1.20); Globulin, Blood 3.3 g/dL (2.2-4.0); Total Protein, Blood 6.5 g/dL (6.4-8.2)
[2023-11-29 21:32] LABS: Hematocrit 37.9 % (37.0-53.0); Hemoglobin 12.5 g/dL (13.5-17.5); Mean Corpuscular Volume 97 fL (80-100); Mean Platelet Volume 10.4 fL (9.1-12.4); Platelet Count 151 K/mm3 (150-400); RDW Coefficient Variation 13.8 % (11.7-14.2); RDW Standard Deviation 49.1 fL (35.1-46.3); Red Blood Cell Count 3.91 M/mm3 (4.30-5.90); White Blood Cell Count 13.37 K/mm3 (4.00-11.30)
[2023-11-29 22:17] LABS: Source, Urine Clean Catch
[2023-11-29 22:31] LABS: Appearance, Urine Clear (Clear); Bilirubin, Urine Neg (Neg); Blood, Urine 1+ (Neg); Glucose Qualitative, Urine Neg (Neg); Ketones, Urine Neg (Neg); Leukocyte Esterase, Urine Neg (Neg); Nitrite, Urine Neg (Neg); Protein, Urine Neg (Neg); Urobilinogen, Urine NORM (Normal)
[2023-11-29 22:33] LABS: BASOPHILS PERCENT MAN 0 % (0-2); TOTAL CELLS COUNTED 100
[2023-11-29 22:48] LABS: Bacteria Few /hpf; Color, Urine Pale Yellow (P-Yellow); Red Blood Cells, Urine 0-2 /hpf (0-2); Squamous Epithelial Cells Few /hpf (Few); White Blood Cells, Urine 0-2 /hpf (0-5)
[2023-11-29 23:07] LABS: BLASTS PERCENT MAN 1 % (0-0); EOSINOPHILS PERCENT MAN 0 % (0-6); LYMPHOCYTES PERCENT MAN 49 % (21-46); MONOCYTES ABSOLUTE MAN 2.13 K/mm3 (0.16-1.47); MONOCYTES PERCENT MAN 16 % (4-13); NEUTROPHILS ABSOLUTE MAN 4.54 K/mm3 (1.96-9.15); SEG NEUTROPHILS PERCENT MAN 34 % (41-73)
[2023-11-29 23:12] LABS: LYMPHOCYTES % ATYPICAL MANUAL 0 % (0-0); LYMPHOCYTES ABSOLUTE MAN 6.55 K/mm3 (0.84-5.20)
[2023-11-30 00:42] VITALS: BP 173/73
== END 2023-11-30 00:39 | disposition home or self-care (01) ==
LOC: ER 19:38
PROVIDERS: Emergency Medicine; Student in an Organized Health Care Education/Training Program
DX: R41.0 Disorientation, unspecified (principal); D72.829 Elevated white blood cell count, unspecified; I10 Essential (primary) hypertension; I48.91 Unspecified atrial fibrillation; E78.00 Pure hypercholesterolemia, unspecified; J45.909 Unspecified asthma, uncomplicated; F03.90 Unspecified dementia, unspecified severity, without behavioral disturbance, psychotic disturbance, mood disturbance, and anxiety; I25.10 Atherosclerotic heart disease of native coronary artery without angina pectoris; E03.9 Hypothyroidism, unspecified; M10.9 Gout, unspecified; Z79.899 Other long term (current) drug therapy
CPT/HCPCS: 70450; 71045; 72125; 74177; 80053; 81001; 85025; 93005; 93010; 99285-25; Q9967

== ENCOUNTER → 2024-01-10 | Outpatient (CLI) | payer MEDICARE ==
[2024-01-10 09:25] LABS: Source, Urine Voided
[2024-01-10 10:53] LABS: Appearance, Urine Clear (Clear); Bilirubin, Urine Neg (Neg); Blood, Urine Neg (Neg); Color, Urine Yellow (P-Yellow); Glucose Qualitative, Urine Neg (Neg); Ketones, Urine Neg (Neg); Leukocyte Esterase, Urine Neg (Neg); Nitrite, Urine Neg (Neg); Protein, Urine 2+ (Neg); Specific Gravity, Urine 1.015 (1.003-1.022); Urobilinogen, Urine NORM (Normal)
[2024-01-10 11:08] LABS: Mucus Heavy (0-Heavy)
[2024-01-10 11:09] LABS: Red Blood Cells, Urine 0-2 /hpf (0-2); White Blood Cells, Urine 0-2 /hpf (0-5)
[2024-01-10 11:10] LABS: Bacteria Rare /hpf; Squamous Epithelial Cells Rare /hpf (Few)
[2024-01-10 11:11] LABS: Amorphous Light (0-Heavy); Calcium Oxalate Crystals Rare /hpf
== END | disposition home or self-care (01) ==
LOC: LAB 08:45 → LAB SHORT 08:45
PROVIDERS: Physician Assistant
DX: R35.0 Frequency of micturition (principal)
CPT/HCPCS: 81001

== ENCOUNTER 2024-07-26 21:04 | Emergency (ER) | payer MEDICARE ==
[~2024-07-26] VITALS: Ht 180.3 cm; Wt 81.7 kg
[2024-07-26 21:49] LABS: Hematocrit 39.7 % (37.0-53.0); Hemoglobin 13.2 g/dL (13.5-17.5); Mean Corpuscular HGB 31.7 pg (26.0-34.0); Mean Corpuscular HGB Conc 33.2 g/dL (31.5-36.5); Mean Corpuscular Volume 95 fL (80-100); Mean Platelet Volume 10.3 fL (9.1-12.4); Platelet Count 163 K/mm3 (150-400); RDW Coefficient Variation 13.4 % (11.7-14.2); RDW Standard Deviation 47.6 fL (35.1-46.3); Red Blood Cell Count 4.16 M/mm3 (4.30-5.90); White Blood Cell Count 21.33 K/mm3 (4.00-11.30)
[2024-07-26 22:09] LABS: Alanine Aminotransfer (ALT/SGP 25 U/L (12-78); Albumin, Blood 3.4 g/dL (3.4-5.0); Albumin/Globulin Ratio 0.9 (0.8-1.8); Alk Phos 58 U/L (50-136); Anion Gap 12 mmol/L (3-11); Aspartate Aminotrans (AST/SGOT 22 U/L (12-37); Bilirubin, Total 0.5 mg/dL (0.1-1.0); Blood Urea Nitrogen 17 mg/dL (8-24); Bun/Creatinine Ratio 16.7 (12.0-20.0); CO2, Blood 26 mmol/L (21-32); Calcium, Blood 9.3 mg/dL (8.5-10.1); Chloride, Blood 101 mmol/L (98-108); Creatinine, Blood 1.02 mg/dL (0.60-1.20); Globulin, Blood 3.7 g/dL (2.2-4.0); Glomerular Filtration Rate 70 (60-); Glucose, Blood 122 mg/dL (70-99); Potassium, Blood 5.2 mmol/L (3.5-5.5); Sodium, Blood 134 mmol/L (136-145); Total Protein, Blood 7.1 g/dL (6.4-8.2)
[2024-07-26 23:10] LABS: BASOPHILS PERCENT MAN 0 % (0-2); BLASTS PERCENT MAN 3 % (0-0); EOSINOPHILS ABSOLUTE MAN 0.42 K/mm3 (0.00-0.68); EOSINOPHILS PERCENT MAN 2 % (0-6); LYMPHOCYTES % ATYPICAL MANUAL 7 % (0-0); LYMPHOCYTES ABSOLUTE MAN 14.71 K/mm3 (0.84-5.20); LYMPHOCYTES PERCENT MAN 62 % (21-46); MONOCYTES ABSOLUTE MAN 1.91 K/mm3 (0.16-1.47); MONOCYTES PERCENT MAN 9 % (4-13); NEUTROPHILS ABSOLUTE MAN 3.62 K/mm3 (1.96-9.15); SEG NEUTROPHILS PERCENT MAN 17 % (41-73); TOTAL CELLS COUNTED 100
[2024-07-27] MEDS ORDERED: Lidocaine 4% 1 Patch TOP ONE (00:35)
[2024-07-27 00:45] VITALS: BP 127/84
== END 2024-07-27 01:00 | disposition home or self-care (01) ==
LOC: ER 21:04
PROVIDERS: Emergency Medicine
DX: R07.89 Other chest pain (principal); Z88.8 Allergy status to other drugs, medicaments and biological substances; Z79.899 Other long term (current) drug therapy; I10 Essential (primary) hypertension; E03.9 Hypothyroidism, unspecified; J45.909 Unspecified asthma, uncomplicated; I48.91 Unspecified atrial fibrillation; E78.00 Pure hypercholesterolemia, unspecified
CPT/HCPCS: 71046; 80053; 83690; 84484; 85025; 93005; 93010; 99285-25; A9270